=== PATIENT | male | born 1975 | race Caucasian/White ===

== ENCOUNTER 2018-03-09 22:01 | Inpatient (IN) | payer OTHER ==
[~2018-03-09] VITALS: Ht 185.4 cm; Wt 75.7 kg
[2018-03-09 22:21] VITALS: BP 166/133; BP 190/135
[2018-03-09] MEDS ORDERED: HYDROCHLOROTHIA25 M2 (22:28)
[2018-03-09] MEDS ORDERED: LISINOPRIL20 MG (22:28)
[2018-03-10 00:41] LABS: ABSOLUTE BASOPHILS 0.1 thou/uL (0.0-0.2); ABSOLUTE EOSINOPHILS 0.1 thou/uL (0.0-0.7); ABSOLUTE LYMPHOCYTES 3.5 thou/uL (0.8-5.3); ABSOLUTE MONOCYTES 0.5 thou/uL (0.0-1.2); ABSOLUTE NEUTROPHILS 6.1 thou/uL (1.6-8.1); BASOPHILS 1.1 %; HEMATOCRIT 45.6 % (42.0-52.0); HEMOGLOBIN 15.3 gm/dL (14.0-18.0); LYMPHOCYTES 34.2 %; MCH 30.3 pg (26.0-34.0); MCHC 33.5 g/dL (28.0-37.0); MCV 90.3 fL (80.0-100.0); MONOCYTES 4.6 %; MPV 9.6 fl. (7.2-11.1); NUCLEATED RBCS 0 /100WBC; PLATELET COUNT* 261 thou/uL (150-400); POLYS 59.1 %; RBC 5.05 mil/uL (4.50-6.00); RDW-CV 14.8 % (10.5-14.5); WBC 10.3 thou/uL (4.0-11.0)
[2018-03-10 00:49] LABS: CALCIUM 8.5 mg/dL (8.5-10.1); CREATININE 1.5 mg/dL (0.6-1.3)
[2018-03-10 00:54] LABS: ALBUMIN 2.9 g/dL (3.4-5.0); POTASSIUM 4.1 mmol/L (3.5-5.1); TOTAL BILIRUBIN 0.7 mg/dL (<0.1-1.0); TOTAL PROTEIN 6.9 g/dL (6.4-8.2)
[2018-03-10 03:00] VITALS: BP 148/103
[2018-03-10 03:09] VITALS: BP 159/129
--- NOTE | 2018-03-10 04:45 | NUR ---
PT ARRIVED IN ROOM AROUND 0300. ASSESSMENT COMPLETED CHARTED. NO C/O PAIN, HAS SOA AND COUGH, UP WITH STANDBY, A & O X 4, PT RESTING IN BED AT THIS TIME. IV IN RFA SL, HBP LOWERING, NO C/O DIZZINESS, HEADACHE, OR NAUSEA. PT STARTED GETTING NAUSEA WHILE GETTING AZITHROMYCIN. WILL CONTINUE WITH PLAN OF CARE.
[2018-03-10 05:06] LABS: INR 1.3; PROTIME 12.7 Seconds (9.20-11.50)
[2018-03-10 07:45] VITALS: BP 147/112
--- NOTE | 2018-03-10 08:37 | NUR ---
RECIEVED REPORT FROM ARY AND ASSUMED CARE OF PT @ 1085.PT IS A/O X4 BUT VERY SLEEPY.BP HIGH @ 147/112.TRACING SR ON MONITOR.LUNG SOUNDS ARE COARSE DIMINSHED ON 2L O2 NC.PT IS HAVING TACHYPNEA WITH PAUSES IN BREATHING WHILE SLEEPING. LAST BM WAS YESTERDAY.IV ROGHT FOREARM PATENT AND SALINE LOCKED.PT IS CALM AND COOPERATIVE WITH NO C/O PAIN AT TIME OF ASSESSMENT. PT IS UP WITH ONE ASSIST TO BATHROOM.PT LEFT RESTING IN BED WITH CALL LIGHT AND FALL PRECAUTIONS IN PLACE.WILL CONTINUE TO MONITOR.
--- NOTE | 2018-03-10 11:37 | EKG ---
[place] [address] ELECTROCARDIOGRAM REPORT Name: DAVON TESFAYE Room: [place] [address] ADM IN .R.#: [id number] Admission: 03/10/18 Attend Phys: Shanta Nettles Discharge: Date of : 77 Report #: [id number] THIS REPORT FOR: //name// [facility] ED Test Date: 2018-03-09 Test Time: 22:32:47 Pat Name: DAVON TESFAYE Department: Room: [place] [address] Gender: M Rehab Physician: MANUEL : 1975 Requested By: Wendie Pyle Order Number: [id number] Laura MD: Gabino Huddleston Measurements Intervals [place] Rate: 112 P: 75 TX: 136 QRS: 47 QRSD: 96 T: 72 QT: 375 QTc: 512 Interpretive Statements Sinus tachycardia Left atrial enlargement Left ventricular hypertrophy Borderline T abnormalities, lateral leads Prolonged QT interval No previous ECG available for comparison Electronically Signed On 03-10-2018 11:37:01 CDT by Gabino Huddleston [email or web address] <ELECTRONICALLY SIGNED> By: Gabino Huddleston MD, [facility] 03/10/18 1137 31 31 Gabino Huddleston MD, FAC /EPI
[2018-03-10 11:47] VITALS: BP 139/111
[2018-03-10 14:09] LABS: HEPATITIS B SURFACE AG Negative (Negative)
[2018-03-10 15:54] VITALS: BP 141/113
[2018-03-10 16:11] LABS: CHOLESTEROL 140 mg/dL (<200); HDL CHOLESTEROL 31 mg/dL (>40); LDL CHOLESTEROL 96 mg/dL (<100); TC:HDL 4.5 Ratio (Not establshd); TRIGLYCERIDE 69 mg/dL (<150); VLDL 14 mg/dL (<40)
[2018-03-10 16:12] LABS: SERUM ASSESSMENT Clear
--- NOTE | 2018-03-10 17:06 | 2DMMODE ---
[place] [address] 2 D/M-MODE ECHOCARDIOGRAM Name: DAVON TESFAYE Room: [place] [address] ADM IN [facility]#: [id number] Admission: 03/10/18 Attend Phys: Mayank Eid Discharge: Date of : 77 Date of Service: 03/10/18 1705 Report #: [id number] THIS REPORT FOR: //name// APPROVED REPORT Study performed: 03/10/2018 14:04:43 EXAM: Comprehensive 2D, Doppler, and color-flow Echocardiogram Patient Location: In-Patient Room #: [facility] Status: routine BSA: 1.99 HR: 100 bpm BP: 147/112 mmHg Rhythm: NSR Other Information Study Quality: Good Indications Hypertension/HDD Pleural Effusion Pneumonia 2D Dimensions LVEF(%): 19.36 (>50%) IVSd: 12.21 (7-11mm) LVOT Diam: 21.12 (18-24mm) LVDd: 55.44 mm PWd: 12.43 (7-11mm) Ascending Ao: 32.06 (22-36mm) LVDs: 50.51 (25-40mm) Aortic Root: 35.36 mm Licea's LVEF: 19.36 % Volumes Left Atrial Volume (Systole) LA ESV Index: 52.00 mL/m2 Aortic Valve AoV Peak Ok.: 0.53 m/s AO Peak Gr.: 1.12 mmHg LVOT Max P.71 mmHg AO Mean Gr.: 0.79 mmHg LVOT Mean P.33 mmHg LVOT Max V: 0.42 m/s AO V2 VTI: 5.64 cm LVOT Mean V: 0.26 m/s BEHZAD (VTI): 3.00 cm2 LVOT V1 VTI: 4.83 [place] [address] 2 D/M-MODE ECHOCARDIOGRAM Name: DAVON TESFAYE Room: [address] IN [facility]#: [id number] Admission: 03/10/18 Attend Phys: Mayank Eid Discharge: Date of : 77 Date of Service: 03/10/18 1705 Report #: [id number] Mitral Valve E/A Ratio: 1.62 MV Decel. Time: 105.67 ms MV E Max Ok.: 1.19 m/s MV PHT: 30.64 ms MVA (PHT): 7.18 cm2 TDI E/Lateral E': 13.22 E/Medial E': 23.80 Medial E' Ok.: 0.05 m/s Lateral E' Ok.: 0.09 m/s Pulmonary Valve PV Peak Ok.: 0.56 m/s PV Peak Gr.: 1.24 mmHg Tricuspid Valve TR Peak Gr.: 23.27 mmHg RVSP: 28.00 mmHg Left Ventricle Left ventricle is mildly dilated. There is global hypokinesis of the left ventricle. Mild concentric left ventricular hypertrophy. Left ventricular systolic function is severely decreased. LVEF is 15-20%. The left ventricular diastolic function is normal. Right Ventricle The right ventricle is normal size. The right ventricular systolic function is normal. Atria Left atrium is severely dilated. The right atrium size is normal. Aortic Valve The aortic valve is normal in structure. No aortic regurgitation is present. There is no aortic valvular stenosis. Mitral Valve The mitral valve is normal in structure. Moderate mitral regurgitation. No evidence of mitral valve stenosis. Tricuspid Valve The tricuspid valve is normal in structure. Mild tricuspid regurgitation. The RVSP is 34_ mmHg. Pulmonic Valve The pulmonary valve is normal in [place] [address] 2 D/M-MODE ECHOCARDIOGRAM Name: DAVON TESFAYE Room: [address] IN [facility]#: [id number] Admission: 03/10/18 Attend Phys: Mayank Eid Discharge: Date of : 77 Date of Service: 03/10/18 1705 Report #: [id number] regurgitation. Great Vessels The aortic root is normal in size. IVC is normal in size and collapses with >50% inspiration Pericardium There is no pericardial effusion. Left pleural effusion. <Conclusion> Mild concentric left ventricular hypertrophy. LVEF is 15-20%. Left atrium is severely dilated. Moderate mitral regurgitation. <ELECTRONICALLY SIGNED> By: Gabino Huddleston MD, [facility] 03/10/181704 04 04 Gabino Huddleston MD, FACC /INF
--- NOTE | 2018-03-10 17:57 | NUR ---
BP HAS REMAINED ELEVATED THROUGHOUT SHIFT.MEDICATIONS GIVEN.CARDIAC MONTIORING IN PLACE WITH NO CHANGES THIS SHIFT.PT REMAINS ON 2L O2 NC.PT HAS DENIED PAIN.IV PATENT AND SALINE LOCKED.PT HAS BEEN ANXIOUS WITH XANAX GIVEN.NICOTINE PATCH ORDERED.STILL NEED TO COLLECT URINE SAMPLE.PT INFORMED OF PLAN OF CARE AND COMMUNICATES UNDERSTANDING.CALL LIGHT WITHIN REACH.WILL CONTINUE TO MONITOR FOR DURATION OF SHIFT.
[2018-03-10 22:00] VITALS: BP 141/106
[2018-03-11 00:18] VITALS: BP 160/123
[2018-03-11 02:12] LABS: GLYCOHEMOGLOBIN (HGB A1C) 5.9 % (4.8-5.6)
[2018-03-11 04:00] VITALS: BP 151/105
--- NOTE | 2018-03-11 06:19 | NUR ---
UA SAMPLE SENT TO LAB. MAINTAIN GOOD OXYGENATION DURING NIGHT. PT IS NOW AWAKE
--- NOTE | 2018-03-11 06:21 | NUR ---
ASSUMED PT CARE YESTERDAY AT 19:15 RPEOT RECEIVED FORM DAY SHIFT NURSE. PT IS ALERT AWAKE ORIENTED X 4. SITTING IN BED , TACHYPNEIC, WIHTOUT OXYGEN ON. OXYGEN APPLIED 2 L ON NC. VITAL SIGNS CHECKED. RESULT WITHIN NORMAL LIMIT. O2 SATURATION 94 ON 2 L NC. PT IS ANXIOU..XANAX ADMINISTERED ALONG WITH OTHER SCHEDULED MEDICATIONS. SINUS TACHY ON TAVON HEART MONITOR. PT FAMILY MEMEBERS ARE A BEDSIDE. NO COMPLAIN OF PAIN. IV LINE PATENT. PT SLEPT DURING WHOLE NIGHT.
[2018-03-11 06:49] LABS: URINE BILIRUBIN NEGATIVE (Negative); URINE BLOOD 1+ (Negative); URINE CLARITY CLEAR; URINE COLOR YELLOW; URINE GLUCOSE-RANDOM NEGATIVE (Negative); URINE KETONES NEGATIVE (Negative); URINE LEUKOCYTES-REFLEX NEGATIVE (Negative); URINE NITRITE-REFLEX NEGATIVE (Negative); URINE PROTEIN 2+ (Negative); URINE SPECIFIC GRAVITY >= 1.030 (1.005-1.030); URINE UROBILINOGEN 0.2 E.U./dl (0.2-1.0)
[2018-03-11 06:58] LABS: BACTERIA-REFLEX 1-9 Few /HPF (None Seen); CASTS None Seen /LPF (None Seen); CRYSTALS None Seen /LPF (None Seen); MUCUS None Seen strn/LPF (None Seen); SQUAMOUS 0-3 Few /LPF (0-3); URINE WBC-REFLEX 0-5 Rare /HPF (0-5)
[2018-03-11 07:19] LABS: AMP/METHAMP POSITIVE (Negative); BARBITURATES Negative (Negative); BENZODIAZEPINES POSITIVE (Negative); COCAINE Negative (Negative); METHADONE Negative (Negative); OPIATES POSITIVE (Negative); PCP Negative (Negative); THC Negative (Negative)
[2018-03-11 09:00] VITALS: BP 167/128
[2018-03-11 11:30] VITALS: BP 154/110
--- NOTE | 2018-03-11 13:22 | NUR ---
MET WITH PT TO DISCUSS HOME SITUATION/DC PLANNING. PT IS CURRENTLY LIVING WITH HIS BROTHER/BARBARA HERE IN THIS ARE[place]. HIS MAILING ADDRESS AND WHERE HE LIVED PREVIOUSLY IS IN AGENCY WITH HIS FATHER/NORM. PT IS NORMALLY INDEPENDENT AND TRIES TO WORK, HASN'T BEEN WORKING RECENTLY BUT MOVED TO THIS AREA BECAUSE THERE IS 'MORE WORK IN THIS AREA.' PT USES NO EQUIPMENT. STATES HE HASN'T HAD INSURANCE FOR ABOUT A YEAR AND STOPPED ALL HIS MEDS, DID TAKE HTN MEDS. STATES HE HAD A HOSPITAL STAY 'AWHILE' AGO AND WAS GIVEN MEDS FOR ONE MONTH FOR HIS BP, BUT NEVER FOLLOWED UP FOR ANYONE AND JUST STOPPED THEM. STRESSED TO PT IMPORTANCE OF F/U AFTER THIS STAY AND POSSIBLE NEED FOR ANTICOAGULANTS WITH IS PE. ALSO IF THERE IS SOMEONE THAT CAN ASSIST WTIH PAYING FOR MEDS FOR HIM, HE STATED HE'D ASK FAMILY. PT MAINTAINED POOR EYE CONTACT, APPEARS TO HAVE LIMITED INSIGHT INTO HIS HEALTH ISSUES AND NEED FOR HEALTHCARE. DID VERBALIZE THAT HE HAS 'FLUID AND A BLOOD CLOT IN MY LUNG.' PT STATED HE THOUGHT HE MAY STAY IN THIS AREA WITH HIS BROTHER. GAVE HIM COMMUNITY RESOURCES FOR THIS AREA [facility] ALICE IN AGENCY AND ENCOURAGED HIM TO F/U WITH ONE OF THEM. UNSURE OF ANTICOAG FOR DC, WILL DISCUSS WITH CONCERN FOR COMPLIANCE.
[2018-03-11 15:30] VITALS: BP 144/102
[2018-03-11 20:00] VITALS: BP 144/103
[2018-03-12] VITALS: BP 138/95
[2018-03-12 04:00] VITALS: BP 128/93
[2018-03-12 05:10] LABS: INR 1.3; PROTIME 12.7 Seconds (9.20-11.50)
[2018-03-12 05:11] LABS: CALCIUM 7.4 mg/dL (8.5-10.1); CREATININE 1.4 mg/dL (0.6-1.3); POTASSIUM 3.3 mmol/L (3.5-5.1)
--- NOTE | 2018-03-12 05:30 | NUR ---
ASSUMED PT CARE AT 19;15 REPORT RECEIVED FORM NURSE.PT IS ALERT AWAKE ORIENTED X4. ON 2 L NC SATURATION IS 99. FAMILY MEMBERS IN ROOM .VITAL SIGNS TAKEN. WITHIN NORMAL LIMIT. PT SAYS HE FEELS ANXIOUS. XANAX ADMINISTERED ALONG WITH OTHER MEDICATIONS ORDERED. SINUS TACHY ON THE MONITOR. ASSESSMENT PERFORMED. DAY SHIFT NURSE MENTIONS IN REPORT THAT PT IS SUPPOSED TO HAVE SOME THORACENTESIS DONE IN THE AM AND TO HOLD LOVENOX FOR THE PROCEDURE. I DID NOT SEE ANY ORDER OR ANY DOCTOR'S NOTES STATES THAT PT WILL HAVE THIS PROCEDURE. BUT I HELD THE LOVENOX IN CASE. AND WILL PASS ON TO DAY SHIFT NURSE IN REPORT
--- NOTE | 2018-03-12 06:36 | NUR ---
LOVENOX WAS HELD FOR POSSIBLE THORACENTESIS PROCEDURE TODAY . THIS WAS COMMUNICATEED TO ME FROM CHANGE OF SHIFT REPORT.
[2018-03-12 07:54] VITALS: BP 138/95
--- NOTE | 2018-03-12 08:21 | CON ---
[address] [address] CONSULTATION Name: DAVON TESFAYE Room: [place] [address] ADM IN M.R.#: [id number] Admission: 03/10/18 Attend Phys: Shanta Nettles Discharge: Date of : 77 Report #: [id number] THIS REPORT FOR: //name// CC: Gabino Huddleston MD [facility] physician/PCP Mayank Eid DATE OF SERVICE: 03/11/2018 REQUESTING PHYSICIAN: Dr. Maldonado. REASON FOR CONSULTATION: Pulmonary embolism, pleural effusion, dyspnea. DISCUSSION: The patient is a 42-year-old man who does not have a history of any prior pulmonary disease or thromboembolic disease. He is a longtime smoker, smoking approximately a pack of cigarettes per day up until recently. He presented to the Emergency Department yesterday. Over the last 3-4 days, had been feeling progressively weaker. He was complaining of shortness of breath. Along with this, he was feeling extremely anxious. He notes the anxiety felt similar, though different to what he had had when he had gone through a divorce in the past. He is not having any actual chest pain. He has had a decreased appetite, however, due to the shortness of breath. He has some cough that has been nonproductive. He was seen in the Emergency Department. He was noted to be dyspneic, though his room air O2 saturations were adequate. He had imaging done in the ED, which showed bilateral infiltrates and pleural effusions. He was followed up with a CT scan of his chest with a PE protocol. It did show he had a small pulmonary embolism noted in right mid lung field. He had bilateral pleural effusions. He had some mild mediastinal adenopathy noted as well. Ground-glass infiltrate noted in the right upper lobe. He was started on high dose Lovenox. Because his troponins were elevated as well as his BNP, Cardiology saw him yesterday. He does have a history of hypertension and dyslipidemia. He was on antihypertensive as well as lipid lowering agents. However, after he had lost the job last year, he lost his health benefits. He had been unable to afford to take his medications. He notes he has had his blood pressure checked in the interim and at times it was extremely high and it was recommended he be evaluated in the ED at that time. Apparently, he was at one point given another prescription for an antihypertensive one that he could afford. However, after he had been (which has been now over a year), he has been up in this area. He has been working here and, as noted, does not have a physician here. In the past, he has had no history of thromboembolic disease. No history of heart or lung problems otherwise. He apparently has gone through some stress testing in the past given his family [place] [address] CONSULTATION Name: DAVON TESFAYE Room: [address] IN [facility]#: [id number] Admission: 03/10/18 Attend Phys: Shanta Nettles Discharge: Date of : 77 Report #: [id number] were unremarkable. PAST MEDICAL HISTORY: Remarkable for the hypertension, dyslipidemia as noted. He did have significant anxiety issues when he was going through a divorce. Apparently, it was an extremely bitter divorce with a lot of associated complications. Has required surgery on his right ankle in the past. MEDICATIONS: He was on in the past were hydrochlorothiazide, lisinopril and Xanax, but not on anything at this time. SOCIAL HISTORY: He is . He does have children. Pack a day smoker up until recently. He notes he was a heavy drinker until a year ago and then he stopped. Denies any other drug use. Tried marijuana once many years ago. 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 More recently had been working on remodeling projects. 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 REVIEW OF SYSTEMS: Please note positives above. Up until recently, he was physically very active with his work, involved a lot of movement, lifting, long hours, etc. He had no trouble keeping up with that. Weight has been stable recently. He did lose some weight last summer when he had done a job switch and he was having to physically work a lot harder. He has not had any syncopal episodes. He does deny chest pain. No swelling in his lower extremities. Denies any nausea or vomiting. Appetite has decreased here in the last several days, but he notes it is primarily because he is short of breath when he eats. He has had no extended travel. No periods of loss of consciousness. FAMILY HISTORY: Positive for heart disease. He is not aware of any thromboembolic disease. His mother had COPD, was a heavy smoker. PHYSICAL EXAMINATION: GENERAL APPEARANCE: A male, looks stated age. He is alert, cooperative. He is resting in bed, his O2 running via nasal cannula. Respirations are mildly elevated. He is able to speak in full sentences. He has no marked distress. HEENT: Head is normocephalic. Sclerae nonicteric. Mucous membranes are moist. Dentition is fair. NECK: Negative for adenopathy. Neck veins do look a little dilated. HEART: Regular, is mildly tachycardic. No S3 is appreciated. Grade 1/6 soft systolic murmur. LUNGS: Reveal breath sounds to be diminished in the bases bilaterally, right greater than left. There is dullness to percussion and decreased tactile fremitus. No E-to-A changes. No crackles or wheezing are heard. ABDOMEN: Soft, without appreciable hepatosplenomegaly. There is no guarding or rebound tenderness noted. EXTREMITIES: Lower extremities are negative for edema. No calf tenderness. SKIN: [place] [address] CONSULTATION Name: MERADAVON Room: [address] IN [facility]#: [id number] Admission: 03/10/18 Attend Phys: Shanta Nettles Discharge: Date of : 77 Report #: [id number] NEUROLOGIC: He is alert and oriented x 3. LABORATORY AND X-RAY FINDINGS: CT was reviewed, note comments above. Echocardiogram done yesterday reveals a severe decrease in his EF to 15-20%. He had global hypokinesis. He had mild LVH. RV is normal. Left atrium severely dilated. He did have moderate mitral regurgitation. No pericardial effusion. On his chemistry on admission, his BUN was 24, creatinine of 1.5, potassium 4.1, albumin 2.9, ALT 114, alkaline phosphatase 131, AST 81. ProBNP 12,240. Troponins had bumped up to 0.14, down to . TSH 3.97. Hemoglobin A1c 5.9. Hepatitis B core antigen is positive. Drug screen was positive for amphetamine/methamphetamines, benzodiazepines and opiates. White blood cell count 10,300, hemoglobin 15.3, hematocrit of 45.6, platelets 261,000. Blood cultures were sent. IMPRESSION: 1. A small right pulmonary embolism. 2. Severe decrease in left ventricular systolic function. Ejection fraction 15-20%. Associated moderate mitral regurgitation. 3. Bilateral pleural effusions, most likely related to decreased left ventricular function. 4. Mild elevation of liver function tests. Could be related to hepatitis versus passive congestion of his liver. 5. Tobacco abuse. 6. Hypertension, he has not been compliant with his regimen. Remains markedly hypertensive here in the hospital. 7. Mild renal insufficiency. RECOMMENDATIONS: 1. Given the size of the pleural effusions noted on his CT scan, we will ask Radiology to tap at least one side. This may help alleviate some of his dyspnea. Await additional Cardiology followup. I have given him Lasix 40 mg IV x 1 at this time. 2. The patient denied drug use to me. He was quite emphatic about that. I do note positive drug screen, but this was not confirmed with a confirmatory study. 3. I will also add some nebulizer treatments, though he was not actively bronchospastic on exam. 4. Depending on additional cardiac evaluation and findings, given the PE, anticipate he will need a minimum of 3 and perhaps 6 months' worth of anticoagulation therapy. 5. We will also assess lower extremity venous Dopplers. <ELECTRONICALLY SIGNED> By: Shelby Price MD 03/12/18 0821 1040 [id number] Price MD /nt
--- NOTE | 2018-03-12 08:41 | NUR ---
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
[2018-03-12 10:33] LABS: CLARITY HAZY; COLOR AMBER; SOURCE ASCITES; TOTAL VOLUME 1160 ml
[2018-03-12 11:21] LABS: BF LYMPHOCYTES 21 %; BF POLYS 79 %; BF TISSUE 22 /100 WBC
[2018-03-12 11:22] LABS: BF RBC 5356 /mm3
[2018-03-12 11:27] VITALS: BP 127/95
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
[2018-03-12 14:10] LABS: HEPATITIS B SURFACE AG Negative (Negative)
--- NOTE | 2018-03-12 14:39 | NUR ---
PT CURRENLTY RESTING IN BED- CLERICAL OFFICE IN PLACE ORDERED, TRACING SR- IV TO RIGHT FA INTACT AND SL, FLUSHING WELL- PT DOWN FOR THORACENTESIS SCHEDULED WITH 1000CC OF FLUID REPORTED TO HAVE BEEN PULLED OFF FROM RIGHT SIDE- PT TOLERATED PROCEURE WELL- GOOD PO INTAKE NOTED WITH LUNCH THIS SHIFT- FAMILY IN VISITING, CM ON CASE MAKING ARRANGEMENTS AND PLANS FOR D/C- K+ REPLACED THIS SHIFT PER PROTOCOL WITH REDRAW SCHEDULED FOR 1640- SCHEDULED 20 MEQ BID ORDERED THIS SHIFT PER - PT DENIES ANY C/O PAIN/DISCOMFORT AT THIS TIME- CALL LIGHT AND PERSONAL BELONGINGS WITH IN REACH- ALL NEEDS MET AT THIS TIME-WCTM
[2018-03-12 15:35] VITALS: BP 138/103
--- NOTE | 2018-03-12 17:42 | CON ---
[address] [address] CONSULTATION Name: DAVON TESFAYE Room: [place] [address] ADM IN .R.#: [id number] Admission: 03/10/18 Attend Phys: Shanta Nettles Discharge: Date of : 77 Report #: [id number] THIS REPORT FOR: //name// CC: [facility] physician/PCP Mayank Eid DATE OF SERVICE: 03/10/2018 HISTORY OF PRESENT ILLNESS: The patient is a 42-year-old single white male who I was asked to see in the hospital today after he complained of being short of breath. The patient has no history of heart disease. He has never been here to [place]. No old records or family members are available. According to the patient, he had a stress test years ago in [place] because heart disease runs in the family, including his father had bypass surgery. He had a second stress test in [place] couple of years ago. He has never had a heart catheterization. He does smoke a pack of cigarettes a day. Recently, he has been under a lot of stress. He quit taking his medications. He stopped taking his Xanax. He ran out of his heart medications. He finally came to the Emergency Room with a brother last night and was admitted. I was asked to see him for cardiac evaluation. He denies any chest pain. He does cough every day. He has had no edema. He notes occasional flutter in heart, but no syncope. In the Emergency Room, his blood pressure was 190/110. PAST MEDICAL HISTORY: Significant for surgery on his right ankle following an accident. He had surgery required of his right neck from a cat bite. MEDICATIONS: He previously had been on Xanax, lisinopril, hydrochlorothiazide. ALLERGIES: He has an allergy to PENICILLIN. FAMILY HISTORY: His father had coronary artery bypass surgery. 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 He has no insurance, he is on no medications. He is going through a divorce, lives with a brother here in [place]. Smokes a pack of cigarettes a day. He used to drink alcohol, but quit drinking alcohol. No longer abuses drugs. REVIEW OF SYSTEMS: He has had no history of stroke. He does have a chronic cough. No history of peptic ulcer disease, liver disease, kidney disease or cancer, no psychiatric illness. PHYSICAL EXAMINATION: GENERAL: Revealed a middle-aged male lying in bed. He appeared in no distress. VITAL SIGNS: Initially blood pressure was 190/110, blood pressure is currently 160/100. His pulse is 90, he was afebrile. HEENT: He was anicteric. Conjunctivae were pink. [place] [address] CONSULTATION Name: DAVON TESFAYE Room: [address] IN [facility]#: [id number] Admission: 03/10/18 Attend Phys: Shanta Nettles Discharge: Date of : 77 Report #: [id number] NECK: Veins are nondistended. No carotid bruits heard. CHEST: Clear to auscultation. HEART: Regular rate and rhythm. No significant murmur. ABDOMEN: Soft, nontender. EXTREMITIES: Had no edema. Posterior tibial pulse 2+ bilaterally. SKIN: Warm, dry. NEUROLOGIC: Nonfocal. LYMPH: No adenopathy. MUSCULOSKELETAL: No joint effusions. PSYCHIATRIC: Mood was somewhat depressed. LABORATORY DATA: Sodium 140, BUN 24, creatinine 1.5, glucose 116. SGOT 81, SGPT 114, alkaline phosphatase 131, bilirubin 0.7, albumin 2.9. His troponin 0.13. BNP 1240. His white blood cell count 10.3, hemoglobin 15.3. He had a chest x-ray in the Emergency Room that showed cardiomegaly, clear lung elizabeth, small effusions. CT scan of the chest was performed using a PE protocol that showed small right mid lung pulmonary embolus. Bilateral effusions, enlarged mediastinal adenopathy, atelectasis. IMPRESSION AND RECOMMENDATIONS: 1. Shortness of breath, suspect secondary to pulmonary embolus. 2. Pulmonary embolus. The patient is anticoagulated. 3. Tobacco abuse. 4. Chronic bronchitis. 5. Mediastinal adenopathy. 6. History of anxiety. Recommend no further cardiac evaluation. <ELECTRONICALLY SIGNED> By: Gabino Huddleston MD, FACC 03/12/18 1742 0858 [id number] Huddleston MD, FAC /nt
[2018-03-12 19:35] VITALS: BP 127/86
[2018-03-13 00:49] VITALS: BP 128/84
--- NOTE | 2018-03-13 02:34 | NUR ---
ASSUMED CARE OF PT AT 1900. VSS. BOYD. NO COMPLAINTS OF PAIN. PTS REPORTS THAT BREATHING IS EASIER SINCE HIS THORACENTESIS. PTS LEFT LUNG IS DIMINISHED AND RIGHT LUNG IS CLEAR. PT IS IN SINUS RYTHM ON THE TELEMETRY. PT IS RESTING COMFORTABLY IN BED. RESPIRATIONS ARE EVEN AND NONLABORED. WILL CONTINUE TO MONITOR PT.
[2018-03-13 04:32] VITALS: BP 121/85
[2018-03-13 05:05] LABS: HEMATOCRIT 42.6 % (42.0-52.0); HEMOGLOBIN 14.1 gm/dL (14.0-18.0); MCH 29.8 pg (26.0-34.0); MCHC 33.1 g/dL (28.0-37.0); MCV 89.9 fL (80.0-100.0); MPV 8.5 fl. (7.2-11.1); RBC 4.75 mil/uL (4.50-6.00); RDW-CV 15.1 % (10.5-14.5); WBC 6.7 thou/uL (4.0-11.0)
[2018-03-13 05:13] LABS: INR 1.3; PROTIME 12.6 Seconds (9.20-11.50)
[2018-03-13 05:31] LABS: ALBUMIN 2.1 g/dL (3.4-5.0); CALCIUM 7.8 mg/dL (8.5-10.1); CREATININE 1.2 mg/dL (0.6-1.3); MAGNESIUM 1.7 mg/dL (1.8-2.4); POTASSIUM 4.2 mmol/L (3.5-5.1); TOTAL BILIRUBIN 0.5 mg/dL (<0.1-1.0); TOTAL PROTEIN 5.6 g/dL (6.4-8.2)
[2018-03-13 08:00] VITALS: BP 131/91
[2018-03-13 11:39] VITALS: BP 125/90
--- NOTE | 2018-03-13 14:21 | NUR ---
ASSUMED CARE OF PATIENT THIS AM AT 0730. PATIENT IS ALERT AND ORIENTED X 4. HE DENIES PAIN THIS AM. PATIENT HAS BEEN DOZING OFF AND ON THROUGHOUT THE DAY. TELE SHOWS SR WITH A 1D AVB. O2 SATS 95% ON ROOM AIR. PATIENT IS PROGRESSING TOWARDS GOALS WILL CONTINUE PLAN OF CARE.
[2018-03-13 16:11] VITALS: BP 123/83
[2018-03-13 20:40] VITALS: BP 129/87
--- NOTE | 2018-03-13 23:39 | NUR ---
RECIEVED REPORT AND ASSUMED CARE OF PATIENT AT [address]. ROAD MARKER IN PLACE TRACING ST. ASSESSMENT AND VITALS COMPLETED CHARTED, VSS. PATIENT A&OX4. PATIENT DENIES PAIN AND DISCOMFORT. ON ROOM AIR WITH O2 SATS 98%. DENIES SHORTNESS OF AIR. GOAL IS TO REMAIN ON ROOM AIR WITH SATS >92% AND REST COMFORTABLY. CALL LIGHT WITHIN REACH
[2018-03-14] VITALS: BP 145/94
[2018-03-14 04:00] VITALS: BP 128/94
--- NOTE | 2018-03-14 04:47 | NUR ---
PATIENT PROGRESSING TOWARDS GOALS: NO RESPIRATORY DISTRESS NOTED THIS SHIFT. PATIENT REMAINS ON ROOM AIR WITH O2 SATS >92%. VSS. HOURLY ROUNDING OBSERVED. CALL LIGHT WITHIN REACH
[2018-03-14 05:20] LABS: HEMATOCRIT 45.9 % (42.0-52.0); HEMOGLOBIN 15.2 gm/dL (14.0-18.0); MCH 29.9 pg (26.0-34.0); MCHC 33.1 g/dL (28.0-37.0); MCV 90.1 fL (80.0-100.0); MPV 8.9 fl. (7.2-11.1); RBC 5.09 mil/uL (4.50-6.00); RDW-CV 15.1 % (10.5-14.5); WBC 6.8 thou/uL (4.0-11.0)
[2018-03-14 05:27] LABS: INR 2.1
[2018-03-14 05:35] LABS: CALCIUM 8.3 mg/dL (8.5-10.1); CREATININE 1.2 mg/dL (0.6-1.3); MAGNESIUM 2.1 mg/dL (1.8-2.4); POTASSIUM 4.7 mmol/L (3.5-5.1)
[2018-03-14 05:41] LABS: BODY FLUID LDH 182 IU/L (()); BODY FLUID PROTEIN 1.8 g/dL (())
[2018-03-14 08:00] VITALS: BP 128/94
[2018-03-14 11:08] VITALS: BP 136/85
--- NOTE | 2018-03-14 11:27 | NUR ---
ASSUMED CARE OF PATIENT THIS AM AT 0730. PATIENT IS ALERT AND ORIENTED X 4. HE DENIES PAIN AND DISCOMFORT. PATIENT HAS BEEN UP IN THE ROOM INDEPENDENTLY. TELE SHOWS SR. INR 2.1 THIS AM. PATIENT HOPES FOR DISCHARGE THIS AFTERNOON. HYGIENE NEEDS ADDRESSED.
[2018-03-14 16:18] VITALS: BP 113/81
[2018-03-14 20:06] VITALS: BP 130/88
[2018-03-15 00:14] VITALS: BP 121/78
[2018-03-15 04:00] VITALS: BP 120/80
[2018-03-15 06:00] LABS: HEMATOCRIT 46.3 % (42.0-52.0); HEMOGLOBIN 15.4 gm/dL (14.0-18.0); MCH 30.4 pg (26.0-34.0); MCHC 33.4 g/dL (28.0-37.0); MCV 91.1 fL (80.0-100.0); MPV 8.5 fl. (7.2-11.1); RBC 5.08 mil/uL (4.50-6.00); RDW-CV 15.7 % (10.5-14.5); WBC 6.3 thou/uL (4.0-11.0)
[2018-03-15 06:10] LABS: INR 2.6; PROTIME 24.8 Seconds (9.20-11.50)
[2018-03-15 06:11] LABS: CALCIUM 8.6 mg/dL (8.5-10.1); CREATININE 1.2 mg/dL (0.6-1.3); POTASSIUM 4.6 mmol/L (3.5-5.1)
--- NOTE | 2018-03-15 06:44 | NUR ---
Pt reports he rested well overnight. States he is planning on being discharged today. No IV, VSS. Will continue to monitor.
[2018-03-15 08:00] VITALS: BP 131/95
--- NOTE | 2018-03-15 11:10 | NUR ---
CONTINUE TO FOLLOW, WAS ABLE TO MAKE APPT AT [facility] FOR PT. MET WITH HIM TO DISCUSS AND STRESS IMPORTANCE OF KEEPING APPTS AND GETTING HIS LAB CHECKED WEEKLY PER DR THOMPSON'S INSTRUCTION. GAVE INSTRUCTION ON WHAT TO TAKE TO APPT AT [facility] AND WROTE IT IN HIS DC INSTRUCTION ALSO. PT HAS SCRIPT FOR 4 MEDS, CHECKED AND THEY ARE ON THE $4/LIST, PT MADE AWARE. PT'S SISTER LAZARO TRIPATHI CALLED AND ASKED THAT PT HAD SCRIPT FOR HIS LABS THEY PLAN TO TAKE HIM TO '[facility]' TO GET DONE. SCRIPT IS ON CHART. ATTEMPTED TO CALL PT'S RAPHAEL/TORSTEN WHO CM HAD SPOKEN WITH LAST WEEK, HAD TO LEAVE MESSAGE. UPDATE TO OSKAR MEJIA
[2018-03-15 11:33] VITALS: BP 113/82
[2018-03-15 15:27] VITALS: BP 110/76
[2018-03-15] MEDS ORDERED: ALDACTONE25 MG PO (15:30)
[2018-03-15] MEDS ORDERED: PRINIVIL20 MG PO (15:32)
[2018-03-15] MEDS ORDERED: CARVEDILOL3.125 MG PO (15:32)
[2018-03-15] MEDS ORDERED: COUMADIN 2 MG TA2 M1 PO (15:33)
--- NOTE | 2018-03-15 16:41 | NUR ---
VSS, ASSUMED CARE IN THE AM, ASSESSMENT PERFORMED AND CHARTED, FALL PRECAUTIONS IN PLACE AND CALL LIGHT IN REACH, PT IS UP AD SONJA AND PN RA TRACING SR ON THE MONITOR, DENIES ANY PAIN AND HAS BEEN UP WALKING THE UNIT AT TIMES, PT GOAL IS TO D/C TO HOME AND IMPROVE UNDERSTANDING OF INFORMATION AT THIS TIME I RECIEVED D/C INSTRUCTIONS AND FILLED OUT MEDICATIONS, PROVITED SCRIPS AND INFO SHEETS ON NEW MEDICATION SHEETS, PT IV AND TELE MONITOR HAVE BEEN TAKEN OFF, PT DENIES ANY QUESTIONS OR CONCERNS AT THIS TIME, PT WAS WALKED OUT BY STAFF TO CAR WITH STAFF, HOURLY ROUNDS COMPLETED,
[2018-03-16 15:18] LABS: SOURCE PLEURAL
--- NOTE | 2018-03-22 08:22 | CON ---
[address] [address] CONSULTATION Name: DAVON TESFAYE Room: [address] IN M.R.#: [id number] Admission: 03/10/18 Attend Phys: Shanta Nettles Discharge: 03/15/18 Date of : 77 Report #: [id number] THIS REPORT FOR: //name// CC: LENARD physician/PCP Mayank Eid DATE OF SERVICE: 03/12/2018 ADDENDUM DATE OF CONSULTATION: 03/11/2018 Confirmation number is #[id number]. I personally seen and examined the patient and reviewed labs and imaging. The patient with elevated liver enzymes, who has normal abdominal ultrasound and bilirubin. ALT is more than AST, and alkaline phosphatase is mildly elevated. The patient had viral hepatitis serology, which is back as hepatitis B core antibody. Hepatitis surface antigen is pending. Also, the abdominal ultrasound appears normal. He has had recent non-STEMI and pulmonary embolism in the right side of his lung. We will order complete set up for viral hepatitis serology and continue monitoring labs. I will make further recommendation once these values are available. <ELECTRONICALLY SIGNED> By: Timmy Pat MD 03/22/18 0822 [id number] Pat MD /nt
--- NOTE | 2018-03-22 08:22 | CON ---
[address] [address] CONSULTATION Name: DAVON TESFAYE Room: [address] IN .R.#: [id number] Admission: 03/10/18 Attend Phys: Shanta Nettles Discharge: 03/15/18 Date of : 77 Report #: [id number] THIS REPORT FOR: //name// CC: LENARD physician/PCP Mayank Eid DICTATED BY: Pat Wilburn [facility] DATE OF SERVICE: 03/11/2018 PRIMARY CARE PHYSICIAN: Please note, the patient does not have a PCP. REASON FOR CONSULTATION: Positive hepatitis B core antibody. HISTORY OF PRESENT ILLNESS: The patient was seen and physically examined by myself. This is a 42-year-old male who presented to the Emergency Room with chief complaint of anxiety, which has been going on for the last 2 weeks. He has noted that he has had a high blood pressure and shortness of breath. Apparently, he had gone to the Emergency Room at one particular time and was given some blood pressure medications and something for his anxiety but once that ran out, he stopped taking all of that. The patient lives in [place] and does not have a PCP at that time. He has a longstanding history of opioid, meth use and benzodiazepine use in the past. He tested negative for hepatitis A and hepatitis C. Note that on the time of admission because the patient was short of air, he was found to have a non-STEMI and a right lobe PE as well. PAST MEDICAL HISTORY: Hypertension and anxiety. PAST SURGICAL HISTORY: He had surgery on his right ankle. MEDICATIONS: He has taken in the past his lisinopril and hydrochlorothiazide. ALLERGIES: To PENICILLIN. FAMILY HISTORY: Negative for any GI or female cancer. SOCIAL HISTORY: The patient admits to a pack per day cigarettes, past history of alcohol use and past history of meth use as well, although he did test positive on his urine drug screen. REVIEW OF SYSTEMS: Twelve-point review of systems is essentially negative except what is mentioned in the HPI. PHYSICAL EXAMINATION: VITAL SIGNS: Temperature 36.7, pulse 100, respirations 18 and blood pressure 144/102[place] [address] CONSULTATION Name: DAVON TESFAYE Room: [address]#: [id number] Admission: 03/10/18 Attend Phys: Shanta Nettles Discharge: 03/15/18 Date of : 77 Report #: [id number] HEART: Tachycardic but regular. LUNGS: Diminished, especially on the right. ABDOMEN: Soft. Positive bowel sounds in all 4 quadrants with no masses or tenderness noted. LABORATORY DATA: Hemoglobin 15.3, hematocrit 45.6, white count is 10.3 and platelets 261. TSH was 3.9. Sodium 140, potassium 4.1, chloride 101, CO2 of 27, BUN is 24, creatinine is 1.5, GFR is 52 and glucose is 116. Total bilirubin is 0.7, alkaline phosphatase 131, ALT is 114 and AST is 81 and his BNP on admission was 12,240. RADIOLOGICAL DATA: There is also noted to have an EF of 15%-20%. He was positive, hepatitis B core antibody positive. IMPRESSION: 1. Positive hepatitis B core antibody. 2. Elevated liver function tests. 3. History of IV drug use and alcohol abuse in the past. 4. Recent dyz-JU-oiednfxov myocardial infarction. 5. Pulmonary embolism in the right lobe. PLAN: 1. We will await hepatitis B e-antibody, hepatitis B e-antigen, hepatitis B surface antibody, HIV total antibody as well as his hepatitis B viral DNA by PCR quantitative level. 2. Further recommendations will be made on an outpatient basis once these labs have been obtained. Thank you for allowing us to participate in this patient's care. Please do not hesitate to call with any questions in regard to this consult. ADDENDUM I personally seen and examined the patient and reviewed labs and imaging. The patient with elevated liver enzymes, who has normal abdominal ultrasound and bilirubin. ALT is more than AST, and alkaline phosphatase is mildly elevated. The patient had viral hepatitis serology, which is back as hepatitis B core antibody. Hepatitis surface antigen is pending. Also, the abdominal ultrasound appears normal. He has had recent non-STEMI and pulmonary embolism in the right side of his lung. We will order complete set of viral hepatitis serology and continue monitoring labs. I will make further recommendation once these values are available. <ELECTRONICALLY SIGNED> By: Timmy Pat MD 03/22/18 0822 [id number] Pat MD /nt
== END 2018-03-15 17:23 | disposition home or self-care (01) | DRG 280 ==
LOC: M.ERS 22:01 → M.2W 03-10 02:19 → M.TBA-ER 03-10 02:19 → M.2W 03-10 02:51
PROVIDERS: Emergency Medicine; Family Medicine; Internal Medicine; Internal Medicine Cardiovascular Disease; Internal Medicine Pulmonary Disease; Nurse Practitioner Adult Health; ADMIT Internal Medicine
PROC: 0W993ZZ Drainage of Right Pleural Cavity, Percutaneous Approach (ICD-10-PCS; principal; 2018-03-12)
DX: I21.4 Non-ST elevation (NSTEMI) myocardial infarction (principal); I26.99 Other pulmonary embolism without acute cor pulmonale; J96.01 Acute respiratory failure with hypoxia; I50.23 Acute on chronic systolic (congestive) heart failure; B19.10 Unspecified viral hepatitis B without hepatic coma; J90 Pleural effusion, not elsewhere classified; N17.9 Acute kidney failure, unspecified; I42.9 Cardiomyopathy, unspecified; I11.0 Hypertensive heart disease with heart failure; E87.6 Hypokalemia; F15.10 Other stimulant abuse, uncomplicated; F10.10 Alcohol abuse, uncomplicated; E83.42 Hypomagnesemia; J42 Unspecified chronic bronchitis; R59.0 Localized enlarged lymph nodes; E78.5 Hyperlipidemia, unspecified; F41.9 Anxiety disorder, unspecified; F17.210 Nicotine dependence, cigarettes, uncomplicated; Z91.14 Patient's other noncompliance with medication regimen; Z79.899 Other long term (current) drug therapy; Z88.0 Allergy status to penicillin; Z82.49 Family history of ischemic heart disease and other diseases of the circulatory system

== ENCOUNTER 2018-03-23 17:38 | Inpatient (IN) | payer OTHER ==
[~2018-03-23] VITALS: Ht 185.4 cm; Wt 72.3 kg
[~2018-03-23 17:38] MED LIST: ALDACTONE25 MG PO; CARVEDILOL3.125 MG PO; COUMADIN 2 MG TA2 M1 PO; HYDROCHLOROTHIA25 M2; LISINOPRIL20 MG; PRINIVIL20 MG PO
[2018-03-23 17:42] VITALS: BP 153/122
[2018-03-23 18:48] LABS: ABSOLUTE BASOPHILS 0.1 thou/uL (0.0-0.2); ABSOLUTE EOSINOPHILS 0.1 thou/uL (0.0-0.7); ABSOLUTE LYMPHOCYTES 3.3 thou/uL (0.8-5.3); ABSOLUTE MONOCYTES 0.7 thou/uL (0.0-1.2); BASOPHILS 0.5 %; EOSINOPHILS 0.6 %; HEMATOCRIT 38.5 % (42.0-52.0); HEMOGLOBIN 12.9 gm/dL (14.0-18.0); LYMPHOCYTES 29.9 %; MCHC 33.4 g/dL (28.0-37.0); MCV 89.6 fL (80.0-100.0); MONOCYTES 5.9 %; MPV 8.1 fl. (7.2-11.1); NUCLEATED RBCS 0 /100WBC; PLATELET COUNT* 288 thou/uL (150-400); POLYS 63.1 %; RDW-CV 15.2 % (10.5-14.5); WBC 11.1 thou/uL (4.0-11.0)
[2018-03-23 18:58] LABS: ANION GAP 9 mmol/L (7-16); APTT 28.5 Seconds (25.0-31.3); BUN 13 mg/dL (7-18); CALCIUM 7.9 mg/dL (8.5-10.1); CHLORIDE 105 mmol/L (98-107); CO2 22 mmol/L (21-32); CREATININE 1.2 mg/dL (0.6-1.3); GLUCOSE 113 mg/dL (70-99); INR 1.3; POTASSIUM 4.5 mmol/L (3.5-5.1); PROTIME 13.1 Seconds (9.20-11.50); SODIUM 136 mmol/L (136-145)
[2018-03-23 19:10] LABS: ALBUMIN 2.6 g/dL (3.4-5.0); ALKALINE PHOSPHATASE 116 U/L (46-116); LIPASE 113 U/L (73-393); NT-PRO BRAIN NAT PEPTIDE 13161 pg/mL (<300); SGOT 41 U/L (15-37); SGPT 79 U/L (30-65); TOTAL BILIRUBIN 0.8 mg/dL (<0.1-1.0); TOTAL PROTEIN 6.1 g/dL (6.4-8.2); TROPONIN-I LEVEL <0.06 ng/mL (<0.06)
[2018-03-23 19:53] LABS: URINE BILIRUBIN NEGATIVE (Negative); URINE BLOOD TRACE (Negative); URINE CLARITY CLEAR; URINE COLOR YELLOW; URINE GLUCOSE-RANDOM NEGATIVE (Negative); URINE KETONES NEGATIVE (Negative); URINE LEUKOCYTES-REFLEX NEGATIVE (Negative); URINE NITRITE-REFLEX NEGATIVE (Negative); URINE PROTEIN 3+ (Negative); URINE SPECIFIC GRAVITY >= 1.030 (1.005-1.030); URINE UROBILINOGEN 0.2 E.U./dl (0.2-1.0)
[2018-03-23 20:01] LABS: AMP/METHAMP Negative (Negative); BARBITURATES Negative (Negative); BENZODIAZEPINES Negative (Negative); COCAINE Negative (Negative); METHADONE Negative (Negative); OPIATES Negative (Negative); PCP Negative (Negative); THC Negative (Negative)
[2018-03-23 20:30] LABS: HYALINE CASTS 0-3 Few /LPF (None Seen); SQUAMOUS NONE SEEN /LPF (0-3); URINE RBC 0-2 Rare /HPF (0-2)
[2018-03-23 20:31] LABS: BACTERIA-REFLEX None Seen /HPF (None Seen); CRYSTALS None Seen /LPF (None Seen); MUCUS None Seen strn/LPF (None Seen); URINE WBC-REFLEX None Seen /HPF (0-5)
[2018-03-23] MEDS ORDERED: LASIX 20 MG TAB20 MG PO (22:35)
--- NOTE | 2018-03-23 23:14 | NUR ---
UPON OBTAINING DISCHARGE INSTRUCTIONS, NOTED B/P WAS 151/117. RECHECK WAS 149/115 ON OPPOSITE SIDE. NOTIFIED AND STATUS CHANGED FROM DISCHARGE TO ADMIT STATUS. HIS SISTER CALLED FOR INFORMATION ON HIS MEDICAL STATUS. HE DID GIVE PERMISSION FOR THIS NURSE TO CALL AND GIVE INFORMATION TO LAZARO TRIPATHI AT [phone]. CALLED AND UPDATED HER AND LET HER KNOW THAT HE DID NOT WANT TO TALK ON THE PHONE TONIGHT HE IS TO SHORT OF BREATH.
[2018-03-23 23:40] VITALS: BP 149/116
[2018-03-23 23:45] VITALS: BP 126/87
[2018-03-24 04:33] VITALS: BP 132/96
[2018-03-24 05:18] LABS: HEMATOCRIT 39.5 % (42.0-52.0); HEMOGLOBIN 13.1 gm/dL (14.0-18.0); MCH 30.2 pg (26.0-34.0); MCHC 33.2 g/dL (28.0-37.0); MCV 90.9 fL (80.0-100.0); MPV 8.5 fl. (7.2-11.1); RBC 4.35 mil/uL (4.50-6.00); RDW-CV 15.1 % (10.5-14.5); WBC 10.4 thou/uL (4.0-11.0)
[2018-03-24 05:44] LABS: ALBUMIN 2.5 g/dL (3.4-5.0); CALCIUM 8.1 mg/dL (8.5-10.1); CREATININE 1.5 mg/dL (0.6-1.3); POTASSIUM 4.9 mmol/L (3.5-5.1); TOTAL BILIRUBIN 0.7 mg/dL (<0.1-1.0)
--- NOTE | 2018-03-24 06:37 | NUR ---
Pt admitted from ED at 2345. Pt states he is still short of air, but improved from when he arrived in ED. Pt recently discharged, had PE when admitted earlier this month. Discharged on warfarin, but INR is 1.3. Pt states he's been feeling bad for about two weeks. DBP over 100 mmHg in ED, but BP stable on arrival to floor following dose of metoprolol IVP and clonidine. BP 140s/90s at 0400. Pt now on RA and denies SOA. Will continue to monitor.
[2018-03-24 08:00] VITALS: BP 130/103
--- NOTE | 2018-03-24 10:18 | EKG ---
[place] [address] ELECTROCARDIOGRAM REPORT Name: DAVON TESFYAE Room: [address] IN [facility]#: [id number] Admission: 03/23/18 Attend Phys: Shanta Nettles Discharge: Date of : 77 Report #: [id number] THIS REPORT FOR: //name// [facility] ED Test Date: 2018-03-23 Test Time: 18:50:17 Pat Name: DAVON TESFAYE Department: Room: Gender: [employer]: Hubert BOLES : 1975 Requested By: Nishi Saavedra Order Number: [id number] MD: Gabino Huddleston Measurements Intervals [place] Rate: 107 P: 65 CA: 143 QRS: 33 QRSD: 96 T: 61 QT: 380 QTc: 507 Interpretive Statements Sinus tachycardia Left atrial enlargement Left ventricular hypertrophy Prolonged QT interval Compared to ECG 03/09/2018 22:32:47 no change Electronically Signed On 03-24-2018 10:18:01 CDT by Gabino Huddleston [email or web address] <ELECTRONICALLY SIGNED> By: Gabino Huddleston MD, FAC 03/24/18 1018 1850 1850 Gabino Huddleston MD, [facility] /EPI
[2018-03-24 12:08] VITALS: BP 134/101
--- NOTE | 2018-03-24 15:36 | NUR ---
Pt was sound asleep when CM went to assess, will f/u later
[2018-03-24 16:46] VITALS: BP 136/102
--- NOTE | 2018-03-24 18:46 | NUR ---
ASSUMED CARRE OF PT AT 0730. PT CONTINUES TO BE A&O X4 CALM AND COOPERATIVE. PT HAS HAD NO C/O PAIN, BUT DID REPORT SOME ANXIETY AND A ORDER FOR XANAX 0.5MG PO BID WAS GOTTEN AND ADMINISTERED. PT REPORTS ANXIETY IS TOLERQABLE. PT HAS BEEN SLEEPING ON AND OFF THROUGH THE SHIFT TODAY. PT HAS BEEN TRACING ST ON THE MONITOR. PT HAS BEEN EATING LESS THAN 75% OF HIS MEALS TODAY. NUTRITION EDUCATION PROVIDED BY THIS NURSE. NURSING WILL CONTINUE TO MONITOR.
[2018-03-24 20:00] VITALS: BP 135/108
--- NOTE | 2018-03-24 22:18 | NUR ---
RECEIVED REPORT AND ASSUMED CARE OF PATIENT AT 1930. 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 ASSESSMENT AND VITALS COMPLETED CHARTED, BP ELEVATED. LISINOPRIL ADMINISTERED PER EMAR. PATIENT EXTREMELY ANXIOUS UPON ASSESSMENT, DIAPHORETIC AND TACHYPNIC. PATIENT PLACED ON 2L O2 NC FOR COMFORT AND C/O SHORTNESS OF AIR. PATIENT STATES HE "IS WALKING OUT OF HERE IF HE DOES NOT GET SOMETHING FOR ANXIETY." PATIENT HAD ALREADY RECEIVED XANAX 30 MINUTES PRIOR TO THIS EPISODE. PHYSICIAN NOTIFIED AND ORDERS RECEIVED FOR ONE TIME LORAZEPAM IV. ADMINISTERED WITH RELIEF, PATIENT NOW SLEEPING. GOAL IS ANXIETY MANAGEMENT AND BLOOD PRESSURE CONTROL. CALL LIGHT WITHIN REACH
[2018-03-25] VITALS: BP 141/112
[2018-03-25 04:00] VITALS: BP 146/113
[2018-03-25 05:26] LABS: INR 1.9; PROTIME 17.9 Seconds (9.20-11.50)
[2018-03-25 05:46] LABS: CALCIUM 8.2 mg/dL (8.5-10.1); CREATININE 1.3 mg/dL (0.6-1.3)
[2018-03-25 08:11] VITALS: BP 110/63
--- NOTE | 2018-03-25 08:22 | CON ---
[address] [address] CONSULTATION Name: DAVON TESFAYE Room: [address] IN M.R.#: [id number] Admission: 03/23/18 Attend Phys: Shanta Nettles Discharge: Date of : 77 Report #: [id number] THIS REPORT FOR: //name// CC: LENARD physician/PCP Mayank Eid DATE OF SERVICE: 03/24/2018 Consult has been requested by Dr. Maldonado. INDICATION FOR CONSULTATION: Shortness of breath with recent acute pulmonary embolism. HISTORY OF PRESENT ILLNESS: A 42-year-old gentleman, he was recently admitted to this hospital. During the previous hospitalization, he was found to have significant cardiomyopathy with a marked reduction in left ventricular ejection fraction. This was a new diagnosis for him. He also had some pulmonary emboli and did have mediastinal lymphadenopathy as well, mild elevation in LFTs was also noted during the last hospitalization. The patient was evaluated by the Cardiology Service. He has not undergone a cardiac catheterization; however, from Cardiology note, it appears that their impression is that his cardiomyopathy is nonischemic. The patient was anticoagulated and was discharged home on Coumadin. The patient presented to the Emergency Room again last evening, presentation was with increasing shortness of breath. He also reports having had hemoptysis at least 1 or 2 episodes which has now subsided, but he reports that he continues to cough up some yellow sputum. His INR was subtherapeutic at 1.3 on presentation. He did have a CT chest performed again which is as discussed below. Pulmonary emboli are no longer seen on the new CT. He only has mild swelling of lower extremities at this time. REVIEW OF SYSTEMS: The patient answers to the negative for 12 questions for review of systems, except as mentioned above. PAST MEDICAL HISTORY: Recent diagnosis of cardiomyopathy revealed on the recent echo which was a left ventricular ejection fraction reduced to only 15%-20%. There is also moderate mitral regurgitation on the last echo with right ventricular pressure of 34. Recent acute pulmonary emboli, recently diagnosed mediastinal lymphadenopathy, mildly elevated liver function tests. SOCIAL HISTORY: The patient is an active smoker, has been smoking for several decades, more than a pack a day, who also had a history of heavy alcohol intake. He is reported to have discontinued about a year ago. He does state that he takes some alcohol now as well. I am unable to quantify how much he is having now. The patient is reported to have denied any illegal drug [place] [address] CONSULTATION Name: DAVON TESFAYE Room: [address]#: [id number] Admission: 03/23/18 Attend Phys: Shanta Nettles Discharge: Date of : 77 Report #: [id number] was positive for methamphetamine, opiates as well as benzodiazepines during the last hospitalization, but he is negative for all of the above during this hospitalization. At some point, he was prescribed a benzodiazepine. [facility] HOME MEDICATIONS: List also in [facility] reviewed. FAMILY HISTORY: Heart disease. PHYSICAL EXAMINATION: GENERAL: He is alert, awake and oriented, does not appear to be in any distress at this time. He is on room air. VITAL SIGNS: In the records and these are reviewed. He is afebrile. He had a low grade elevation in temperature to 37.3 yesterday. HEENT: Head is normocephalic and atraumatic. Pupils are equal and reactive. There is no throat erythema. NECK: Does not show raised JVP, asymmetry, mass or lymph nodes. CHEST: Symmetrical expansion on inspection and palpation. On auscultation, breath sounds are reduced at bilateral lung bases. Rest of the chest is clear. HEART: Regular. There is a soft systolic murmur. ABDOMEN: Soft and nontender. EXTREMITIES: Lower extremities show trace to 1+ edema on the right side. There is no edema on the left. There is no calf tenderness. LABORATORY DATA: The patient's lab work is in [facility] and this is also reviewed. ASSESSMENT AND PLAN: 1. Shortness of breath. The patient, as noted above, has recently been diagnosed with cardiomyopathy. His CT chest does show changes consistent with fluid overload. In addition, there is radiopaque density/ground glass infiltrates at bilateral lung bases, which is significantly more than what I would expect from atelectasis secondary to pleural effusions. This is consistent with pneumonia. 2. Pulmonary infiltrates/pneumonia as discussed above. He does have a fairly significant pleural effusions; however, my impression is that the radiopaque densities noted at bilateral lung bases are significantly more than would be expected due to passive atelectasis alone. I will therefore treat him as pneumonia. I ordered Levaquin. I also ordered a sputum culture as well as nasal swab for methicillin-resistant Staphylococcus aureus. The patient does report having coughed up dark yellow sputum. He also had minor hemoptysis yesterday, which since then has not reoccurred. 3. Acute pulmonary embolism. Pulmonary emboli are noted on CT performed 2 weeks ago. They are no longer seen now. Regardless, for now, I do feel that we should continue anticoagulation and the same has [place] [address] CONSULTATION Name: DAVON TESFAYE Room: [address] IN [facility]#: [id number] Admission: 03/23/18 Attend Phys: Shanta Nettles Discharge: Date of : 77 Report #: [id number] some hypercoagulability testing done during the last hospitalization. I ordered some more now this is not likely to loom changer right now; however, may have an impact on long-term plans regarding his anticoagulation. 4. Cardiomyopathy. From Cardiology notes it appears that the Cardiology impression during the last hospitalization was that this is nonischemic. The patient reports having had a stress test performed in 2011. He does not report having had any stress test or cardiac catheterization since then. I will defer to the cardiology service regarding whether more ischemic testing is performed. I favor keeping him on the package drier side as long as his creatinine tolerates, mild elevation in creatinine today is noted. Note also that he has received IV dye yesterday; therefore, for now, I would be cautious in diuresis. 5. Possible underlying obstructive sleep apnea/central sleep apnea secondary to cardiomyopathy. He may benefit from an outpatient sleep study later. 6. Elevated LFTs. These may be due to heart failure as I understand he was also seen by the Gastroenterology service during the last hospitalization. Thanks for this consultation. <ELECTRONICALLY SIGNED> By: Shelby Price MD 03/25/18 0822 [id number] taniya Ambriz
--- NOTE | 2018-03-25 09:56 | NUR ---
ASSUMED CARE OF PATIENT AFTER REPORT. PT IS ALERT AND ORIENTED X4. VITAL SIGNS TAKEN AND RECORDED. PHYSICAL ASSESSMENT COMPLETED AND CHARTED. PT ON RA WITH 96% O2 SAT. SR ON TELE. PT REQUESTED FOR ANXIETY MEDS- XANAX GIVEN. DENIES ANY PAIN OR ANY DISCOMFORT AT THIS TIME. CALL LIGHT WITHIN REACH. WILL CONTINUE TO MONITOR PT.
[2018-03-25 11:30] VITALS: BP 130/104
[2018-03-25 13:09] LABS: HEPATITIS B SURFACE AG Negative (Negative)
--- NOTE | 2018-03-25 14:37 | NUR ---
Pt is A&O. States that he has been living at his brother and RAPHAEL home. Independent with ADLS, continues to drive. No DME. No hx of HH or SNF. During Pt's last hospital stay, BENI scheduled an appt for Pt at [facility], Pt stated that he did not make it to that appt. BENI contacted and spoke with Pt's RAPHAEL, Kirti, she confirmed that Pt did not go to his appt and that Pt did not get his medications filled for 3 days after dc. Brother and RAPHAEL were willing to pay for his appt and medications. [facility] stated "Pt is full of excuses." BENI sent business card for to [facility], for Pt to f/u with Dr Maldonado at al, [facility] will call to schedule and appt for Pt on Thursday.
[2018-03-25 16:15] VITALS: BP 140/107
--- NOTE | 2018-03-25 18:21 | NUR ---
DISCONTINUED LEVONOX PER ORDER. NICOTINE PATCH STARTED-PLACED AT RIGHT SHOULDER. STILL SR ON TELE. IV LINE PATENT AND INTACT. PT ON RA WITH O2 SAT OF 96%. UP ADLIB. PT DENIES ANY PAIN OR DISCOMFORT. WILL CONTINUE TO MONITOR PT.
[2018-03-25 20:00] VITALS: BP 127/96
[2018-03-26] VITALS (7 sets, daily range): BP systolic 119–137; BP diastolic 91–99
[2018-03-26 05:01] LABS: INR 2.1
[2018-03-26 05:10] LABS: CALCIUM 8.1 mg/dL (8.5-10.1); CREATININE 1.2 mg/dL (0.6-1.3)
[2018-03-26 05:38] LABS: POTASSIUM 3.7 mmol/L (3.5-5.1)
--- NOTE | 2018-03-26 08:39 | NUR ---
PATIENT PROGRESSING TOWARDS GOALS: PATIENT'S VSS AND REMAINS IN SR THIS SHIFT. PATIENT DENIES PAIN AND DISCOMFORT. NO C/O SHORTNESS OF AIR WITH O2 SATS >92% ON ROOM AIR. ANXIETY MANAGED WITH ONE DOSE OF XANAX PRIOR TO BED. CALL LIGHT WITHIN REACH.
[2018-03-26 09:09] LABS: ANTI-DNA SCREEN <1 IU/mL (0-9); ANTI-RNP 0.2 AI (0.0-0.9)
--- NOTE | 2018-03-26 09:14 | NUR ---
PT CARE ASSUMED AT 0700. ASSESSMENT COMPLETED. PT DENIES PAIN. VSS. MORNING MEDICATIONS GIVEN. PT REQUESTING XANAX, GIVEN PER PRN ORDER. WILL CONTINUE TO MONITOR.
--- NOTE | 2018-03-26 16:31 | CON ---
[address] [address] CONSULTATION Name: DAVON TESFAYE Room: [address] IN M.R.#: [id number] Admission: 03/23/18 Attend Phys: Shanta Nettles Discharge: Date of : 77 Report #: [id number] THIS REPORT FOR: //name// CC: LENARD physician/PCP Mayank Eid DATE OF SERVICE: 03/24/2018 TYPE OF REPORT: Cardiology consultation. HISTORY OF PRESENT ILLNESS: The patient is a 42-year-old single white male who I was asked to see in the hospital today after he complained of being short of breath. The patient presented to [place] approximately 2 weeks ago after he stopped taking his blood pressure medications. He had been coughing and noticed his heart fluttering. His blood pressure is elevated. He underwent a V/Q scan of the chest that showed a small right mid lung pulmonary embolus with bilateral effusions and atelectasis. He also underwent an echocardiogram that showed an ejection fraction of only 20% with left ventricular hypertrophy, left atrial enlargement and moderate mitral regurgitation. He was felt to have a nonischemic cardiomyopathy and an incidental small pulmonary embolus. Additional workup during his hospitalization 2 weeks ago included his venous duplex scan of his legs that showed no DVT. He did undergo a thoracentesis during his hospitalization. Unfortunately, the patient had no medical insurance. He was given generic medications and eventually discharged on warfarin. Unfortunately, [facility], has not his INR checked since he left the hospital 2 weeks ago. He now smokes only a few cigarettes a day and has only rare alcohol. However, the patient notes that despite his medications, he continued to be very short of breath. He finally came to the Emergency Room last night and was admitted. He has been coughing but denies any fever. He has noticed some swelling of his feet. He denies any chest pain, palpitations or syncope. He has no energy and no appetite. PAST MEDICAL HISTORY: Significant for surgery on his right ankle following an accident. He had surgery on his right neck from the cat bite at [facility] 20 years ago. He has a history of hypertension. No diabetes or hyperlipidemia. He was sent home on warfarin, lisinopril, furosemide and carvedilol. ALLERGIES: He has an allergy to PENICILLIN. FAMILY HISTORY: His father had coronary artery bypass surgery and lives in [place], [place]. 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 He is going through a divorce. He does have a 19-year-old daughter. He plans live with his dad down at [facility]. Unfortunately, he has no insurance. He now smokes less than half pack [address] [place] [address] CONSULTATION Name: DAVON TESFAYE Room: [address] IN [facility]#: [id number] Admission: 03/23/18 Attend Phys: Shanta Nettles Discharge: Date of : 77 Report #: [id number] of cigarettes a day, used to drink alcohol on a regular basis but no longer drinks excessive alcohol. 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 He no longer abuses drugs. REVIEW OF SYSTEMS: No history of stroke. He does have a chronic cough. No history of peptic ulcer disease, liver disease, kidney disease, cancer, psychiatric illness or chronic skin condition. PHYSICAL EXAMINATION: GENERAL: Revealed a middle-aged male lying in bed, he appeared in no acute distress. VITAL SIGNS: He had a blood pressure last night of 130/90, his pulse is 100 and he was afebrile. HEENT: He is anicteric. Conjunctivae pink. Mucous members moist. NECK: Veins nondistended. CHEST: Clear to auscultation. CARDIOVASCULAR: Regular rate and rhythm. S3 gallop. Grade 2 systolic ejection murmur. ABDOMEN: Soft and nontender. EXTREMITIES: Had no pitting edema. SKIN: Cool and dry. NEUROLOGICAL: Nonfocal. RADIOLOGICAL DATA: His ECG when he came in to the Emergency Room last night showed a sinus tachycardia, left ventricular hypertrophy, repolarization changes. His workup in the Emergency Room last night, he had a chest x-ray that showed evidence of pneumonia and a right infiltrate, small effusions. CT scan of the chest using a PE protocol was done last night that showed near resolution of the pulmonary embolus, small effusions. LABORATORY DATA: Last night, he had sodium 137, BUN 15 and creatinine 1.5. Liver function studies were normal. Albumin 2.5. Troponin 0.06. His recent TSH is 3.9. Glycosylated hemoglobin was 5.9, done 03/10/2018. He had a white blood cell count of 10.4 and hemoglobin is 13.1. IMPRESSION AND RECOMMENDATIONS: 1. Dilated cardiomyopathy. The patient has bilateral pleural effusions. The patient has been on a beta davis, angiotensin-converting enzyme inhibitor, spironolactone and Lasix. His prognosis is obviously guarded. 2. Small pulmonary embolus. The patient has been anticoagulated. However, he has not had INR checked since he left the hospital because his lack of insurance. Therefore, his INR is only 1.3 on admission. 3. Tobacco abuse. The patient is now smoking less cigarettes. 4. Chronic bronchitis. [place] [address] CONSULTATION Name: DAVON TESFAYE Room: [address] IN M.R.#: [id number] Admission: 03/23/18 Attend Phys: Shanta Nettles Discharge: Date of : 77 Report #: [id number] 5. Previous alcohol abuse. 6. History of illicit drug use. <ELECTRONICALLY SIGNED> By: Gabino Huddleston MD, FACC 03/26/18 1631 1642 [id number] Huddleston MD, FACC /nt
[2018-03-26] MEDS ORDERED: LASIX 40 MG TAB40 M2 PO (18:26)
--- NOTE | 2018-03-26 18:42 | NUR ---
HAD TRIED TO CALL DR REINA MULTIPLE TIMES TO DISCUSS DISCHARGE. NO RETURN CALL. SPOKE WITH DR LOPEZ WHO IS SHORT FILLER BUNCH MACHINE OPERATOR THIS EVENING. DISCHARGE ORDER RECEIVED AND INTRUCTIONS TO CALL IN ONE MONTH OF MEDICATIONS FOR PTS.
--- NOTE | 2018-03-26 20:42 | NUR ---
d/c note: social work professor removed, IV removed. Pt understands all d/c instructions, copies given and put in chart. Pt taken out by Erlindaearl abbott by wheelchair.
== END 2018-03-26 20:53 | disposition home or self-care (01) | DRG 291 ==
LOC: M.ERS 17:38 → M.2W 22:59 → M.TBA-ER 22:59 → M.2W 23:45
PROVIDERS: Emergency Medicine; Internal Medicine; Internal Medicine Cardiovascular Disease; Internal Medicine Critical Care Medicine; Personal Emergency Response Attendant; ADMIT Internal Medicine
DX: I50.21 Acute systolic (congestive) heart failure (principal); I26.09 Other pulmonary embolism with acute cor pulmonale; I42.0 Dilated cardiomyopathy; E44.0 Moderate protein-calorie malnutrition; B18.1 Chronic viral hepatitis B without delta-agent; G47.33 Obstructive sleep apnea (adult) (pediatric); J44.9 Chronic obstructive pulmonary disease, unspecified; R80.9 Proteinuria, unspecified; F12.10 Cannabis abuse, uncomplicated; I11.0 Hypertensive heart disease with heart failure; F41.9 Anxiety disorder, unspecified; F17.210 Nicotine dependence, cigarettes, uncomplicated; Z88.0 Allergy status to penicillin; Z91.040 Latex allergy status; Z82.49 Family history of ischemic heart disease and other diseases of the circulatory system; Z68.21 Body mass index [BMI] 21.0-21.9, adult; Z79.2 Long term (current) use of antibiotics; Z79.01 Long term (current) use of anticoagulants; Z79.899 Other long term (current) drug therapy

== ENCOUNTER 2018-06-27 23:09 | Emergency (ER) | payer OTHER ==
[~2018-06-27] VITALS: Ht 185.4 cm; Wt 75.8 kg
[~2018-06-27 23:09] MED LIST changes: +LASIX 20 MG TAB20 MG PO; +LASIX 40 MG TAB40 M2 PO
[2018-06-27] MEDS ORDERED: KEFLEX500 M1 PO (23:34)
[2018-06-27] MEDS ORDERED: NORCO 5-325 TA1 EAC1 PO (23:34)
[2018-06-27 23:56] VITALS: BP 183/122
== END 2018-06-27 23:58 | disposition home or self-care (01) ==
LOC: M.ERS 23:09
DX: S61.301A Unspecified open wound of left index finger with damage to nail, initial encounter (principal); I10 Essential (primary) hypertension; F17.210 Nicotine dependence, cigarettes, uncomplicated; Z88.0 Allergy status to penicillin; Z91.040 Latex allergy status; W26.0XXA Contact with knife, initial encounter; Y93.89 Activity, other specified; Y92.89 Other specified places as the place of occurrence of the external cause; Y99.8 Other external cause status

== ENCOUNTER 2019-07-20 07:43 | Inpatient (IN) | payer OTHER ==
[~2019-07-20] VITALS: Ht 182.9 cm; Wt 69.4 kg
[~2019-07-20 07:43] MED LIST changes: +ACCUPRIL40 MG PO; +ASA81BEC PO; +CARVEDILOL12.5 MG PO; +IPRAT-ALBUT 0.5-3 ML INH; +KEFLEX500 M1 PO; +NORCO 5-325 TA1 EAC1 PO; +PREDNISONE 10 M10 MG PO; +SPIRONOLACTONE25 MG PO
[2019-07-20 07:47] VITALS: BP 140/100
[2019-07-20] MEDS ORDERED: COREG25 MG PO (07:51)
[2019-07-20] MEDS ORDERED: COUMADIN 5 MG TA5 M1 PO (07:52)
[2019-07-20] MEDS ORDERED: LISINOPRIL20 MG PO (07:52)
[2019-07-20 08:21] LABS: ABSOLUTE BASOPHILS 0.1 thou/uL (0.0-0.2); ABSOLUTE EOSINOPHILS 0.2 thou/uL (0.0-0.7); ABSOLUTE LYMPHOCYTES 2.2 thou/uL (0.8-5.3); ABSOLUTE MONOCYTES 0.7 thou/uL (0.0-1.2); ABSOLUTE NEUTROPHILS 6.1 thou/uL (1.6-8.1); BASOPHILS 1.1 %; EOSINOPHILS 1.7 %; HEMATOCRIT 36.9 % (42.0-52.0); HEMOGLOBIN 12.2 gm/dL (14.0-18.0); LYMPHOCYTES 23.9 %; MCH 30.1 pg (26.0-34.0); MCHC 33.2 g/dL (28.0-37.0); MCV 90.7 fL (80.0-100.0); MONOCYTES 7.3 %; NUCLEATED RBCS 0 /100WBC; PLATELET COUNT* 350 thou/uL (150-400); RBC 4.07 mil/uL (4.50-6.00); RDW-CV 14.5 % (10.5-14.5); WBC 9.3 thou/uL (4.0-11.0)
[2019-07-20 08:25] LABS: CALCIUM 8.3 mg/dL (8.5-10.1); CREATININE 1.4 mg/dL (0.6-1.3); POTASSIUM 5.4 mmol/L (3.5-5.1)
[2019-07-20 08:29] LABS: ALBUMIN 2.2 g/dL (3.4-5.0); TOTAL BILIRUBIN 0.3 mg/dL (<0.1-1.0)
[2019-07-20 08:40] LABS: BE -0.5 mmol/L (-2 to +3); PCO2 32.5 mmHg (35.0-45.0); PO2 90.9 mmHg (75.0-100.0); pH 7.461 (7.340-7.450)
[2019-07-20 09:00] LABS: PROTIME 10.1 Seconds (9.20-11.50)
[2019-07-20 10:39] LABS: NT-PRO BRAIN NAT PEPTIDE 5893 pg/mL (<300); TROPONIN-I LEVEL <0.06 ng/mL (<0.06)
--- NOTE | 2019-07-20 11:20 | EKG ---
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 : 1975 Requested By: Nishi Saavedra Order Number: [id number] Laura MD: Gabino Huddleston Measurements Intervals [place] Rate: 85 P: 63 WI: 158 QRS: 50 QRSD: 103 T: 159 QT: 410 QTc: 488 Interpretive Statements Sinus rhythm Probable left atrial enlargement LVH with secondary repolarization abnormality Borderline prolonged QT interval Compared to ECG 05/18/2019 17:05 no change Electronically Signed On 07-20-2019 11:20:45 CDT by Gabino Huddleston [email or web address] <ELECTRONICALLY SIGNED> By: Gabino Huddleston MD, [facility] 07/20/19 1120 [id number] Gabino Huddleston MD, FACC /EPI
[2019-07-20 12:48] VITALS: BP 154/109
--- NOTE | 2019-07-20 13:34 | NUR ---
PT ADMITTED ON TELE FLOOR. VSS SEE CHART. SR ON FRAME FIXER. PT IS VERY LETHARGIC, OPEN EYES AND RESPONDS TO YES OR NO QUESTIONS BUT IS NOT INTERACTIVE. PT REQUESTED THAT HE BE LEFT ALONE FOR A COUPLE MINUTES SO HE CAN REST BEFORE ADMISSION HX CAN BE DONE. LUNG SOUNDS ARE DIMINISHED. RT PROTOCOL INTIATED PT PUT ON 2 L NC BECUSE OF SOB. HOB ELEVATED AT 45 DEGREE. FALL PRECAUTION IN PLACE. CALL LIGHT AT REACH. YELLOW SOCKS ON. WILL PORCEED WITH ADMISSION WHNE PT IS AWAKE
[2019-07-20 13:45] VITALS: BP 105/84
[2019-07-20 16:00] VITALS: BP 151/113
--- NOTE | 2019-07-20 16:24 | NUR ---
PT IS MORE AWAKE , ADMISSION HS DONE AT BEDSIDE , PT COOPORATED. PT IS HAVING LESS SOB, O2 ON AT 2 L NC. NICOTINE PACTH ORDERED. PT BROUGHT WITH HIM HIS PILLS WHICH ARE SENT TO PHARMACY.
[2019-07-20 17:01] LABS: INR 1.1; PROTIME 11.7 Seconds (9.20-11.50)
[2019-07-20 18:38] LABS: URINE BILIRUBIN NEGATIVE (Negative); URINE BLOOD NEGATIVE (Negative); URINE CLARITY CLEAR; URINE COLOR YELLOW; URINE GLUCOSE-RANDOM NEGATIVE (Negative); URINE KETONES NEGATIVE (Negative); URINE LEUKOCYTES-REFLEX NEGATIVE (Negative); URINE NITRITE-REFLEX NEGATIVE (Negative); URINE PROTEIN NEGATIVE (Negative); URINE UROBILINOGEN 0.2 E.U./dl (0.2-1.0)
--- NOTE | 2019-07-20 19:20 | NUR ---
pt requested some anxiety medicine at shift change. was paged about the request. awaiting for order
[2019-07-20 20:00] VITALS: BP 144/111
[2019-07-20 20:29] LABS: AMP/METHAMP Negative (Negative); BARBITURATES Negative (Negative); BENZODIAZEPINES Negative (Negative); COCAINE Negative (Negative); METHADONE Negative (Negative); OPIATES Negative (Negative); PCP Negative (Negative); THC Negative (Negative)
[2019-07-21] VITALS: BP 144/110
[2019-07-21 04:00] VITALS: BP 146/104
[2019-07-21 04:52] LABS: HEMATOCRIT 36.3 % (42.0-52.0); HEMOGLOBIN 11.8 gm/dL (14.0-18.0); MCH 29.3 pg (26.0-34.0); MCHC 32.4 g/dL (28.0-37.0); MCV 90.2 fL (80.0-100.0); MPV 9.1 fl. (7.2-11.1); NUCLEATED RBCS 0 /100WBC; PLATELET COUNT* 321 thou/uL (150-400); RBC 4.02 mil/uL (4.50-6.00); RDW-CV 14.4 % (10.5-14.5); WBC 14.7 thou/uL (4.0-11.0)
[2019-07-21 05:01] LABS: CALCIUM 8.3 mg/dL (8.5-10.1); CREATININE 1.6 mg/dL (0.6-1.3); POTASSIUM 5.4 mmol/L (3.5-5.1)
[2019-07-21 05:24] LABS: PROTIME 22.7 Seconds (9.20-11.50)
--- NOTE | 2019-07-21 05:25 | NUR ---
PT A&O X4, MAINTINING O2 SATS ON 2L VIA NC. NO C/O PAIN STATED BY PT. HE DID REPORT AN ANXIETY LEVEL OF 8/10. RECIEVED PRN ORDER. PT ABLE TO SLEEP WELL THROUGH OUT THE NIGHT. IS ON STRICT I&O FOR HX OF CHF. PT IS IN BED RESTING WITH CALL LIGHT WITHIN REACH.
[2019-07-21 05:37] LABS: INR 2.3
[2019-07-21 05:42] LABS: ABSOLUTE MONOCYTES 0.3 thou/uL (0.0-1.2); ABSOLUTE NEUTROPHILS 13.4 thou/uL (1.6-8.1); ANISOCYTOSIS 1+; PLATELET ESTIMATE ADEQUATE; POIKILOCYTOSIS 1+
--- NOTE | 2019-07-21 07:10 | NUR ---
CHANGE OF SHIFT, BEDSIDE REPORT GIVEN PATIENT SEEN IN BED ASLEEP ASSUMED PATIENT CARE
[2019-07-21 08:00] VITALS: BP 143/104
[2019-07-21 12:00] VITALS: BP 137/98
--- NOTE | 2019-07-21 14:38 | NUR ---
Pt is A&O. Resides at home alone. No DME. No hx of HH or SNF. Reena from [facility] here to assess for [place] NIRMALA. Per Reena, a NIRMALA kirill was taken when Pt was recently at [facility], she will f/u and keep CM posted. Following.
[2019-07-21 16:23] VITALS: BP 150/96
[2019-07-21 20:26] VITALS: BP 140/87
[2019-07-22] VITALS: BP 155/100
[2019-07-22 04:00] VITALS: BP 158/104
[2019-07-22 04:30] LABS: ABSOLUTE BASOPHILS 0.2 thou/uL (0.0-0.2); ABSOLUTE EOSINOPHILS 0.1 thou/uL (0.0-0.7); ABSOLUTE LYMPHOCYTES 2.3 thou/uL (0.8-5.3); ABSOLUTE MONOCYTES 0.9 thou/uL (0.0-1.2); ABSOLUTE NEUTROPHILS 8.5 thou/uL (1.6-8.1); BASOPHILS 1.3 %; EOSINOPHILS 1.2 %; HEMATOCRIT 33.5 % (42.0-52.0); LYMPHOCYTES 19.4 %; MCH 29.6 pg (26.0-34.0); MCHC 32.9 g/dL (28.0-37.0); MCV 89.8 fL (80.0-100.0); MONOCYTES 7.3 %; MPV 8.5 fl. (7.2-11.1); NUCLEATED RBCS 0 /100WBC; PLATELET COUNT* 311 thou/uL (150-400); POLYS 70.8 %; RBC 3.74 mil/uL (4.50-6.00); RDW-CV 14.5 % (10.5-14.5)
[2019-07-22 04:46] LABS: INR 3.3; PROTIME 32.8 Seconds (9.20-11.50)
[2019-07-22 05:01] LABS: CALCIUM 7.8 mg/dL (8.5-10.1); CREATININE 1.4 mg/dL (0.6-1.3)
[2019-07-22 05:02] LABS: POTASSIUM 4.2 mmol/L (3.5-5.1)
[2019-07-22 07:58] VITALS: BP 149/99
--- NOTE | 2019-07-22 08:17 | NUR ---
PT IS ABLE TO COMMUNICATE HIS NEEDS TO STAFF EFFECTIVELY. HE HAS DENIED THE NEED FOR PAIN MEDICATION DURING WOOL HANKER UP TO 0700 TODAY. POSSIBLE DISCHARGE LATER TODAY. PT CURRENTLY ON WARFARIN AND LOVENOX.
--- NOTE | 2019-07-22 09:30 | NUR ---
ASSUMED CARE OF PT THIS AM AROUND 0715- MANAGER NC IN PLACE ORDERED, TRACING SR/ST-UPON ASSESSMENT PT NOTED TO BE RESTING IN BED- PT A&O X4- CONTINENT OF BOWEL AND BLADDER- UP AD-SONJA IN ROOM, STEADY GAIT NOTED- COURSE LUNG SOUNDS NOTED WITH WHEEZING; NON-PRODUCTIVE COUGH- VSS, O2 SAT 96% ON RA- ABD SOFT/ROUND/NON-TENDER, BS X4 QUADS- LAST BM REPORTED 07/21/19- IV NOTED TO RIGHT AC INACT AND SL, IV ABT GIVEN THIS AM PRESICBED- GOOD PO INTAKE NOTED THIS AM WITH BREAKFAST- CARDIO CONSULTED THIS AM R/T CARDIOMYOPATHY/CHF- CHEST X-RAY COMPLETED THIS AM PRESCRIBED, RESULTS NOTED IN CHART- PT DENIES ANY C/O PAIN/DISCOMFORT AT THIS TIME- CALL LIGHT AND PERSONAL BELONGINGS WITH IN REACH- PT MAKES NEEDS KNOWN- ALL NEEDS MET AT THIS TIME-WCTM
[2019-07-22 12:00] VITALS: BP 140/93
[2019-07-22 16:21] VITALS: BP 142/102
--- NOTE | 2019-07-22 16:21 | CON ---
[address] [address] CONSULTATION Name: DAVON TESFAYEON Room: [address] IN M.R.#: [id number] Admission: 07/20/19 Attend Phys: Mica Champion MD Discharge: Date of : 77 Report #: [id number] THIS REPORT FOR: //name// CC: LENARD physician/PCP Mica Champion DATE OF SERVICE: 07/22/2019 CARDIOLOGY CONSULTATION HISTORY OF PRESENT ILLNESS: The patient is a 44-year-old single white male who I was asked to see in the hospital today after complained of being short of breath. The patient has been a smoker in the past. He initially presented in 02/2018 here to [facility] with shortness of breath. He had been a smoker. In the Emergency Room, he was noted to have elevated blood pressure. He did have a history of hypertension. Workup in 02/2018 included an echocardiogram that showed an ejection fraction of only 20%, left ventricular hypertrophy, left atrial enlargement, moderate mitral regurgitation. He underwent a nuclear stress test in April of this year here at [facility] that showed the following results: There was ejection fraction again of only 25%, but no ischemia. He had a repeat echocardiogram in April that again confirmed an ejection fraction of 25%. The patient initially had been placed on lisinopril and carvedilol, but quit taking his medications because he had no insurance and cannot afford them. Recently, the patient again complained of shortness of breath and cough. He went to the Emergency Room in [place], [place], and was transferred to [facility] where he was just admitted last week for 5 days. He was told he continued to have evidence of pulmonary embolus and was placed back on warfarin. He was discharged 2 days ago, but continued to complain of being short of breath. He therefore had his brother driving to [facility] and was admitted yesterday after being discharged 1 day previously from [facility]. He denies any edema, orthopnea, chest pain, palpitations, or syncope. PAST MEDICAL HISTORY: Significant for no major surgical procedures. He does have a history of hypertension. No history of diabetes. ALLERGIES: HE HAS AN ALLERGY TO PENICILLIN. FAMILY HISTORY: His father had heart disease. 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 REVIEW OF SYSTEMS: He has had no history of stroke, liver disease, kidney disease, cancer, psychiatric illness, [place] [address] CONSULTATION Name: MERADAVONON Room: [address] IN M.R.#: [id number] Admission: 07/20/19 Attend Phys: Mica Champion MD Discharge: Date of : 77 Report #: [id number] PHYSICAL EXAMINATION: GENERAL: Revealed a middle-aged male lying in bed. He appeared in no distress. VITAL SIGNS: He had a blood pressure of 140/80, pulse was 90, he was afebrile. HEENT: He was anicteric. Conjunctivae were pink. Mucous membranes moist. NECK: Veins do not appear distended. CHEST: Decreased breath sounds in both lung elizabeth. CARDIOVASCULAR: Regular rate and rhythm, S4, gallop. No significant murmur. ABDOMEN: Soft. EXTREMITIES: Had no edema. Posterior tibial pulse 2+ bilaterally. SKIN: Warm and dry. NEUROLOGIC: Nonfocal. RADIOLOGICAL DATA: His ECG showed a sinus rhythm, left ventricular hypertrophy, repolarization changes. Workup since he has been here at [facility], he had another CT scan of the chest using a PE protocol that showed no filling defect to suggest acute pulmonary embolus, cardiomegaly. His chest x-ray showed small effusions. Pulmonary vasculature actually appeared normal. LABORATORY WORK: Sodium 138, potassium 4.2, BUN 22, creatinine 1.4. SGOT 114, SGPT 135, alkaline phosphatase is 118, albumin 2.0. TSH 3.8. White blood cell count 12.0, hemoglobin 11. His INR is 3.3. IMPRESSION AND RECOMMENDATIONS: 1. Dilated nonischemic cardiomyopathy. Reason unclear. I would recommend an THEO inhibitor, beta davis, Aldactone, and Lasix as needed. 2. Chronic obstructive pulmonary disease. 3. Tobacco abuse. The patient continues to smoke. 4. History of pulmonary embolus. The patient has been anticoagulated in the past. 5. History of hypertension. 6. History of illicit drug use. <ELECTRONICALLY SIGNED> By: Gabino Huddleston MD, [facility] 07/22/19 1621 0932 [id number] Huddleston MD, FAC /nt
--- NOTE | 2019-07-22 16:52 | NUR ---
PT CURRENTLY RESTING IN BED, FAMILY AT SIDE VISITING- SASH STICKER IN PLACE ORDERED, TRACING SR- IV NOTED TO RIGHT AC INTACT AND SL- GOOD PO INTAKE NOTED THIS SHIFT WITH MEALS- EDUCATION ABOUT NEEDED SPUTUM GIVEN WITH CONTAINER TO COLLECT AT BEDSIDE- PT MAKES NEEDS KNOWN- ALL NEEDS MET AT THIS TIME-WCTM
[2019-07-22 20:28] VITALS: BP 141/98
[2019-07-23] VITALS: BP 142/99; BP 172/91
[2019-07-23 04:00] VITALS: BP 136/100
[2019-07-23 04:38] LABS: ABSOLUTE BASOPHILS 0.1 thou/uL (0.0-0.2); ABSOLUTE EOSINOPHILS 0.3 thou/uL (0.0-0.7); ABSOLUTE LYMPHOCYTES 2.8 thou/uL (0.8-5.3); ABSOLUTE MONOCYTES 0.9 thou/uL (0.0-1.2); ABSOLUTE NEUTROPHILS 5.3 thou/uL (1.6-8.1); BASOPHILS 1.4 %; EOSINOPHILS 3.2 %; HEMATOCRIT 36.7 % (42.0-52.0); HEMOGLOBIN 12.1 gm/dL (14.0-18.0); LYMPHOCYTES 29.5 %; MCH 29.7 pg (26.0-34.0); MCV 89.9 fL (80.0-100.0); MONOCYTES 9.3 %; MPV 8.6 fl. (7.2-11.1); NUCLEATED RBCS 0 /100WBC; PLATELET COUNT* 370 thou/uL (150-400); POLYS 56.6 %; RBC 4.08 mil/uL (4.50-6.00); RDW-CV 14.7 % (10.5-14.5); WBC 9.3 thou/uL (4.0-11.0)
[2019-07-23 04:46] LABS: PROTIME 16.9 Seconds (9.20-11.50)
[2019-07-23 04:51] LABS: INR 1.7
[2019-07-23 04:53] LABS: ALBUMIN 2.2 g/dL (3.4-5.0); CALCIUM 8.3 mg/dL (8.5-10.1); CREATININE 1.2 mg/dL (0.6-1.3); POTASSIUM 4.2 mmol/L (3.5-5.1); TOTAL BILIRUBIN 0.2 mg/dL (<0.1-1.0); TOTAL PROTEIN 5.7 g/dL (6.4-8.2)
--- NOTE | 2019-07-23 05:27 | NUR ---
PT IS ABLE TO COMMUNICATE HIS NEEDS TO STAFF EFFECTIVELY. HE HAS DENIED THE NEED FOR PAIN MEDICATION UP TO THIS TIME. POSSIBLE DISCHARGE LATER TODAY.
[2019-07-23 08:17] VITALS: BP 141/97
[2019-07-23 08:40] VITALS: BP 141/97
--- NOTE | 2019-07-23 09:18 | NUR ---
ASSUMED CARE OF PT THIS AM AROUND 0715- WILDLIFE CONSERVATION OFFICER IN PLACE ORDERED, TRACING ST- UPON ASSESSMENT PT NOTED TO BE RESTING IN BED. WATCHING TV- PT A&O X-4- CONTINENT OF BOWEL AND BLADDER- UP AD-SONJA IN ROOM, STEADY GAIT NOTED- LCTA, RESP EVEN AND UN-LABORED- VSS, O2 SAT 97% ON RA- ABD SOFT/ROUND/FLAT, BS X4 QUADS- BM REPORTED THIS AM- IV NOTED TO RIGHT AC INTACT AND SL, IV ABT GIVEN THIS AM PRESCRIBED- DENIES ANY C/O PAIN/DISCOMFORT AT THIS TIME- MAKES NEEDS KNOWN- ALL NEEDS MET AT THIS TIME-WCTM
[2019-07-23] MEDS ORDERED: NICOTINE TRANSD21 M1 (11:03)
[2019-07-23] MEDS ORDERED: DOXYCYCLINE 10100 MG PO (11:04)
--- NOTE | 2019-07-23 11:50 | NUR ---
ORDERS RECIEVED FOR OKAY TO D/C TO HOME THIS SHIFT PER - IV TO RIGHT AC D/C'D ALONG WITH [employer] DIVER PRIOR TO D/C- D/C EDUCATION/TEACHING/NEEDED FOLLOW UP'S COMMUNICATED TO PT WITH ALL QUESTIONS AND CONCERNS ADDRESSED- WRITTEN EDUCATION ALONG WITH SCRIPTS PROVIED TO PT PRIOR TO D/C- PT EDUCATED ON NEED FOR PT/INR LAB DRAW ON 07/25/19 WITH RESULTS COMMUNCATED TO PCP AND CASING FINISHER AND STUFFER; PT VERBALIZED UNDERSTANDING- BELONGINGS PACKED AND ACCOUNTED FOR PER PT- PT CURRENTLY DRESSED UP IN CHAIR AWAITING RIDE FOR D/C- ALL NEEDS MET AT THIS TIME-WCTM
== END 2019-07-23 12:07 | disposition home or self-care (01) | DRG 177 ==
LOC: M.ERS 07:43 → M.2W 11:52 → M.TBA-ER 11:52 → M.2W 13:21
PROVIDERS: Internal Medicine; Personal Emergency Response Attendant; ADMIT Family Medicine
DX: J15.6 Pneumonia due to other Gram-negative bacteria (principal); I26.99 Other pulmonary embolism without acute cor pulmonale; I50.43 Acute on chronic combined systolic (congestive) and diastolic (congestive) heart failure; I27.82 Chronic pulmonary embolism; I42.0 Dilated cardiomyopathy; I13.0 Hypertensive heart and chronic kidney disease with heart failure and stage 1 through stage 4 chronic kidney disease, or unspecified chronic kidney disease; B19.10 Unspecified viral hepatitis B without hepatic coma; J44.9 Chronic obstructive pulmonary disease, unspecified; F17.210 Nicotine dependence, cigarettes, uncomplicated; K74.60 Unspecified cirrhosis of liver; N18.3 Chronic kidney disease, stage 3 (moderate); F10.11 Alcohol abuse, in remission; F19.11 Other psychoactive substance abuse, in remission; F41.9 Anxiety disorder, unspecified; Z88.0 Allergy status to penicillin; Z91.040 Latex allergy status; Z79.01 Long term (current) use of anticoagulants; Z79.899 Other long term (current) drug therapy; Z82.49 Family history of ischemic heart disease and other diseases of the circulatory system; Z63.5 Disruption of family by separation and divorce; Z71.6 Tobacco abuse counseling; Z91.14 Patient's other noncompliance with medication regimen

== ENCOUNTER 2019-08-15 16:06 | Inpatient (IN) | payer OTHER ==
[~2019-08-15] VITALS: Ht 185.4 cm; Wt 67.4 kg
[~2019-08-15 16:06] MED LIST changes: +COREG25 MG PO; +COUMADIN 5 MG TA5 M1 PO; +DOXYCYCLINE 10100 MG PO; +LISINOPRIL20 MG PO; +NICOTINE TRANSD21 M1
[2019-08-15 16:12] VITALS: BP 174/129
[2019-08-15 16:43] LABS: ABSOLUTE BASOPHILS 0.1 thou/uL (0.0-0.2); ABSOLUTE EOSINOPHILS 0.2 thou/uL (0.0-0.7); ABSOLUTE LYMPHOCYTES 2.4 thou/uL (0.8-5.3); ABSOLUTE MONOCYTES 0.6 thou/uL (0.0-1.2); BASOPHILS 1.3 %; EOSINOPHILS 2.7 %; HEMATOCRIT 34.6 % (42.0-52.0); HEMOGLOBIN 11.6 gm/dL (14.0-18.0); LYMPHOCYTES 33.1 %; MCH 29.5 pg (26.0-34.0); MCHC 33.5 g/dL (28.0-37.0); MONOCYTES 7.8 %; MPV 8.4 fl. (7.2-11.1); NUCLEATED RBCS 0 /100WBC; PLATELET COUNT* 236 thou/uL (150-400); POLYS 55.1 %; RBC 3.93 mil/uL (4.50-6.00); RDW-CV 15.1 % (10.5-14.5); WBC 7.3 thou/uL (4.0-11.0)
[2019-08-15 16:47] LABS: INR 2.1; PROTIME 21.4 Seconds (9.20-11.50)
[2019-08-15 16:48] LABS: CALCIUM 8.6 mg/dL (8.5-10.1); CREATININE 1.4 mg/dL (0.6-1.3); POTASSIUM 4.7 mmol/L (3.5-5.1)
[2019-08-15 17:07] LABS: ALBUMIN 2.4 g/dL (3.4-5.0); TOTAL BILIRUBIN 0.5 mg/dL (<0.1-1.0); TOTAL PROTEIN 5.8 g/dL (6.4-8.2)
--- NOTE | 2019-08-15 18:13 | NUR ---
HASEEB NOTIFIED UPON PT RETURN FROM CT. PT CONNECTED TO MONITOR
[2019-08-15 20:00] VITALS: BP 184/137
[2019-08-15 20:11] VITALS: BP 170/120
[2019-08-16] VITALS: BP 176/114
[2019-08-16 04:00] VITALS: BP 146/102
--- NOTE | 2019-08-16 07:31 | NUR ---
REPORT RECEIVED FROM ASAD IN ED. PT ARRIVED TO ROOM PER CART @ 2004. AMBULATED TO BED WITH STEADY GAIT. MEDS VERIFIED. ORDERS OBTAINED. ADMISSION COMPLETE. PT DENIED PAIN. NO RESPIRATORY DISTRESS NOTED OR OBSERVED. PT SLEPT MOST OF SHIFT. BM 08/15. PT ALSO HAS CELLPHONE AND VAT WASHER WITH BELONGINGS. CALL LIGHT IN REACH. HOURLY ROUNDING FOR SAFETY.
[2019-08-16 08:00] VITALS: BP 148/111
--- NOTE | 2019-08-16 08:45 | EKG ---
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 : 1975 Requested By: Wilton Kruse Order Number: [id number] MD: Ky Maldonado Measurements Intervals [place] Rate: 91 P: 58 CO: 148 QRS: 42 QRSD: 100 T: 196 QT: 401 QTc: 494 Interpretive Statements Sinus rhythm Left atrial enlargement LVH with secondary repolarization abnormality Anterior ST elevation, probably due to LVH Borderline prolonged QT interval Baseline wander in lead(s) V2 Compared to ECG 07/20/2019 07:55:39 ST (T wave) deviation now present Electronically Signed On 08-16-2019 8:44:45 CDT by Ky Maldonado [email or web address] <ELECTRONICALLY SIGNED> By: Ky Maldonado MD, FACC 08/16/19 0844 1646 1646 Ky Maldonado MD, FACC /EPI
[2019-08-16 11:50] VITALS: BP 135/90
--- NOTE | 2019-08-16 13:13 | NUR ---
MET WITH PT TO DISCUSS HOME SITUATION/DC PLANNING. PT LIVE ALONE, FATHER LIVES CLOSEBY AND IS SUPPORTIVE. PT IS UNINSURED. [employer] HERE THIS AFTERNOON AND TALKED WITH PT ABOUT HIS MEDICAID FOUZ[place], IS STILL NEEDING TO PROVIDE BANK STATEMENTS AND TX RETURN. PT AWARE. PT STATES HE STILL HAS MEDS AT HOME AND THEY HAVE REFILLS ON THEM. GETS HIS MEDS AT [facility]. HE PLANS TO F/U WITH A IN [place]. WILL FOLLOW
--- NOTE | 2019-08-16 15:05 | 2DMMODE ---
[place] [address] 2 D/M-MODE ECHOCARDIOGRAM Name: DAVON TESFAYE Room: [address] IN [facility]#: [id number] Admission: 08/15/19 Attend Phys: Shadi guzman Sa Discharge: Date of : 77 Date of Service: 08/16/19 1505 Report #: [id number] THIS REPORT FOR: //name// APPROVED REPORT Study performed: 08/16/2019 11:39:24 EXAM: Comprehensive 2D, Doppler, and color-flow Echocardiogram Patient Location: In-Patient Room #: [facility] Status: routine BSA: 1.93 HR: 66 bpm BP: 148/111 mmHg Rhythm: NSR Other Information Study Quality: Good Indications Pulmonary Embolism 2D Dimensions IVSd: 13.69 (7-11mm) LVOT Diam: 20.92 (18-24mm) LVDd: 52.09 mm PWd: 12.10 (7-11mm) LVDs: 44.99 (25-40mm) Aortic Root: 36.13 mm Volumes Left Atrial Volume (Systole) LA ESV Index: 36.10 mL/m2 Aortic Valve AoV Peak Ok.: 0.92 m/s AO Peak Gr.: 3.37 mmHg LVOT Max P.18 mmHg AO Mean Gr.: 1.99 mmHg LVOT Mean P.49 mmHg LVOT Max V: 0.89 m/s AO V2 VTI: 13.39 cm LVOT Mean V: 0.56 m/s BEHZAD (VTI): 3.49 cm2 LVOT V1 VTI: 13.62 cm Mitral Valve E/A Ratio: 0.87 MV Decel. Time: 201.92 ms MV E Max Ok.: 0.77 m/[place] [address] 2 D/M-MODE ECHOCARDIOGRAM Name: DAVON TESFAYE Room: [address]#: [id number] Admission: 08/15/19 Attend Phys: Shadi eugene los Sa Discharge: Date of : 77 Date of Service: 08/16/19 1505 Report #: [id number] MV PHT: 58.56 ms MVA (PHT): 3.76 cm2 TDI E/Lateral E': 12.83 Lateral E' Ok.: 0.06 m/s Pulmonary Valve PV Peak Ok.: 0.71 m/s PV Peak Gr.: 2.01 mmHg Left Ventricle The left ventricle is normal size. There is global hypokinesis of the left ventricle. Mild concentric left ventricular hypertrophy. Left ventricular systolic function is severely decreased. LVEF is 25-30%. Grade I - abnormal relaxation pattern. Right Ventricle The right ventricle is normal size. The right ventricular systolic function is normal. Atria Left atrium is mildly dilated. The right atrium size is normal. Aortic Valve The aortic valve is normal in structure. No aortic regurgitation is present. There is no aortic valvular stenosis. Mitral Valve The mitral valve is normal in structure. Trace mitral regurgitation. No evidence of mitral valve stenosis. Tricuspid Valve The tricuspid valve is normal in structure. There is no tricuspid valve regurgitation noted. Pulmonic Valve The pulmonary valve is normal in structure. There is no pulmonic valvular regurgitation. Great Vessels The aortic root is normal in size. IVC is normal in size and collapses >50% with inspiration. Pericardium There is no pericardial [place] [address] 2 D/M-MODE ECHOCARDIOGRAM Name: DAVON TESFAYE Room: [address] IN .R.#: [id number] Admission: 08/15/19 Attend Phys: Shadi guzman Sa Discharge: Date of : 77 Date of Service: 08/16/19 1505 Report #: [id number] effusion. <Conclusion> The left ventricle is normal size. Mild concentric left ventricular hypertrophy. Left ventricular systolic function is severely decreased. LVEF is 25-30%. Grade I - abnormal relaxation pattern. There is global hypokinesis of the left ventricle. Left atrium is mildly dilated. Trace mitral regurgitation. IVC is normal in size and collapses >50% with inspiration. <ELECTRONICALLY SIGNED> By: Ky Maldonado MD, FACC 08/16/19 1505 04 04 Ky Maldonado MD, FACC /INF
[2019-08-16 15:46] VITALS: BP 118/81
--- NOTE | 2019-08-16 19:46 | NUR ---
ASSUSSMED CARE OF PT APPROX 0730. REASSESSMENT COMPLETED CHARTED. MEDICATIONS GIVEN CHARTED. SAFTEY PRECAUTIONS IN PLACE. HOURLY ROUNDED FOR SAFTEY. PT HAS BEEN SLEEPING MOST OF THE SHIFT. PT ENCOURAGED TO GET UP TO BEDSIDE CHAIR. PT NEEDS MET. PERSONAL ITEMS AND CALL LIGHT WITHIN REACH.
[2019-08-16 19:50] VITALS: BP 118/74
[2019-08-17] VITALS: BP 120/74
[2019-08-17 04:00] VITALS: BP 132/81
--- NOTE | 2019-08-17 06:44 | NUR ---
VSS. SEE MAR. SEE CHARTING. HOURLY ROUNDING FOR SAFETY.
[2019-08-17 08:00] VITALS: BP 128/75
[2019-08-17 09:44] LABS: BASOPHILS 0.1 %; HEMATOCRIT 44.2 % (42.0-52.0); LYMPHOCYTES 2.5 %; MCH 28.8 pg (26.0-34.0); MCHC 32.9 g/dL (28.0-37.0); MCV 87.4 fL (80.0-100.0); MONOCYTES 3.8 %; MPV 8.4 fl. (7.2-11.1); NUCLEATED RBCS 0 /100WBC; POLYS 93.6 %; RBC 5.06 mil/uL (4.50-6.00); RDW-CV 15.4 % (10.5-14.5)
[2019-08-17 09:47] LABS: ABSOLUTE LYMPHOCYTES 0.6 thou/uL (0.8-5.3); ABSOLUTE MONOCYTES 0.9 thou/uL (0.0-1.2); ABSOLUTE NEUTROPHILS 21.6 thou/uL (1.6-8.1); HEMOGLOBIN 14.5 gm/dL (14.0-18.0); PLATELET COUNT* 339 thou/uL (150-400); WBC 23.1 thou/uL (4.0-11.0)
[2019-08-17 10:07] LABS: CALCIUM 8.8 mg/dL (8.5-10.1); CREATININE 1.7 mg/dL (0.6-1.3); MAGNESIUM 1.9 mg/dL (1.8-2.4); POTASSIUM 3.9 mmol/L (3.5-5.1)
[2019-08-17 12:00] VITALS: BP 139/97
[2019-08-17 16:00] VITALS: BP 125/68
[2019-08-17] MEDS ORDERED: LEVAQUIN 750 M750 MG PO (16:45)
[2019-08-17] MEDS ORDERED: PROAIR HFA8.5 GM INH (16:46)
[2019-08-17 18:17] VITALS: BP 125/68
--- NOTE | 2019-08-17 20:19 | NUR ---
PT VSS, NSR ON TELE, A&OX4. PT UP AD SONJA, AMBULATES IN ROOM. HOURLY ROUNDING PERFORMED, CALL LIGHT AND POSSESSIONS WITHIN REACH. REC DISCHARGE ORDERS, REVIEWED DISCHARGE PACKET WITH PT. ANSWERED QUESTIONS. PROVIDER ELECTRONICALLY SCRIPTED MEDS, GAVE PT CARE NOTES. REMOVED TELE MONITOR, REMOVED IV WITHOUT COMPLICATION PT LEFT UNIT WITH BROTHER AND LEFT BY CAR.
== END 2019-08-17 18:54 | disposition home or self-care (01) | DRG 291 ==
LOC: M.ERS 16:06 → M.2W 17:31 → M.TBA-ER 17:31 → M.2W 20:05
PROVIDERS: Internal Medicine; Physician Assistant; ADMIT Family Medicine
DX: I13.0 Hypertensive heart and chronic kidney disease with heart failure and stage 1 through stage 4 chronic kidney disease, or unspecified chronic kidney disease (principal); J18.9 Pneumonia, unspecified organism; I50.23 Acute on chronic systolic (congestive) heart failure; J44.0 Chronic obstructive pulmonary disease with (acute) lower respiratory infection; K74.60 Unspecified cirrhosis of liver; I42.8 Other cardiomyopathies; N18.3 Chronic kidney disease, stage 3 (moderate); K73.9 Chronic hepatitis, unspecified; Z86.711 Personal history of pulmonary embolism; Z88.0 Allergy status to penicillin; Z91.040 Latex allergy status; Z82.49 Family history of ischemic heart disease and other diseases of the circulatory system; Z71.6 Tobacco abuse counseling

== ENCOUNTER 2019-09-24 21:02 | Inpatient (IN) | payer OTHER ==
[~2019-09-24] VITALS: Ht 185.4 cm; Wt 71.2 kg
[~2019-09-24 21:02] MED LIST changes: +LEVAQUIN 750 M750 MG PO; +PROAIR HFA8.5 GM INH
[2019-09-24 21:05] VITALS: BP 182/136
[2019-09-24 21:43] LABS: ABSOLUTE BASOPHILS 0.1 thou/uL (0.0-0.2); ABSOLUTE MONOCYTES 0.8 thou/uL (0.0-1.2); ABSOLUTE NEUTROPHILS 8.1 thou/uL (1.6-8.1); BASOPHILS 0.7 %; EOSINOPHILS 0.3 %; HEMATOCRIT 38.7 % (42.0-52.0); HEMOGLOBIN 12.6 gm/dL (14.0-18.0); LYMPHOCYTES 17.8 %; MCH 27.9 pg (26.0-34.0); MCHC 32.6 g/dL (28.0-37.0); MCV 85.7 fL (80.0-100.0); MONOCYTES 7.5 %; MPV 8.5 fl. (7.2-11.1); NUCLEATED RBCS 0 /100WBC; PLATELET COUNT* 349 thou/uL (150-400); POLYS 73.7 %; RBC 4.52 mil/uL (4.50-6.00); RDW-CV 16.2 % (10.5-14.5)
[2019-09-24 21:53] LABS: APTT 28.8 Seconds (25.0-31.3); CALCIUM 7.3 mg/dL (8.5-10.1); CREATININE 1.7 mg/dL (0.6-1.3); INR 1.6; POTASSIUM 5.3 mmol/L (3.5-5.1); PROTIME 16.3 Seconds (9.20-11.50)
[2019-09-24 22:04] LABS: ALBUMIN 2.4 g/dL (3.4-5.0); TOTAL BILIRUBIN 1.6 mg/dL (<0.1-1.0); TOTAL PROTEIN 5.5 g/dL (6.4-8.2)
[2019-09-24 23:22] VITALS: BP 193/135
[2019-09-25 01:30] VITALS: BP 158/101
--- NOTE | 2019-09-25 01:35 | NUR ---
ADMIT TO ROOM 204 AT 2330. ALERT ORIENTED. UP AD SONJA. TELEMETRY SHOWS ST. 100-110. BP 192/138 DR NOTIFIED. ORDER FOR HYDROLAZINE OBTAINED AND GIVEN. BP DOWN TO 158/101. BREATH SOUNDS DIMINISHED ON RIGHT. O2 AT 2 LITERS NC. PT MAKE NPO AT [place] FOR CARDIOLOGY CONSULT. WCTM.
[2019-09-25 04:00] VITALS: BP 170/106
--- NOTE | 2019-09-25 07:20 | NUR ---
CHANGE OF SHIFT, BEDSIDE REPORT PATIENT SEEN AT BEDSIDE, IN BED RESTING ASSUMED PATIENT CARE
[2019-09-25 08:00] VITALS: BP 169/109
[2019-09-25 11:30] VITALS: BP 147/101
[2019-09-25 16:00] VITALS: BP 131/50
[2019-09-25 20:00] VITALS: BP 137/85
[2019-09-26] VITALS: BP 123/74
--- NOTE | 2019-09-26 00:11 | NUR ---
PT ALERT ORIENTED. UP AD SONJA IN ROOM. VOIDS CLEAR YELLOW. ON RA. BREATH SOUNDS DIMINISHED. TRAMADOL GIVEN FOR PAIN IN BACK. BENADRYL FOR SLEEP. TELEMETRY SHOWS SR. VILLARREAL
[2019-09-26 04:00] VITALS: BP 138/67
[2019-09-26 04:51] LABS: HEMATOCRIT 34.6 % (42.0-52.0); HEMOGLOBIN 11.4 gm/dL (14.0-18.0); MCH 27.8 pg (26.0-34.0); MCHC 32.9 g/dL (28.0-37.0); MCV 84.7 fL (80.0-100.0); RBC 4.09 mil/uL (4.50-6.00); RDW-CV 16.5 % (10.5-14.5); WBC 24.3 thou/uL (4.0-11.0)
[2019-09-26 04:57] LABS: INR 1.3; PROTIME 12.9 Seconds (9.20-11.50)
[2019-09-26 05:09] LABS: CALCIUM 7.4 mg/dL (8.5-10.1); CREATININE 1.7 mg/dL (0.6-1.3); MAGNESIUM 1.9 mg/dL (1.8-2.4); POTASSIUM 3.6 mmol/L (3.5-5.1); TOTAL BILIRUBIN 0.5 mg/dL (<0.1-1.0); TOTAL PROTEIN 5.2 g/dL (6.4-8.2)
[2019-09-26 07:00] VITALS: BP 136/75
--- NOTE | 2019-09-26 10:41 | NUR ---
Pt is A&O. Independent. Known to this CM from previous hospital stay. Pt states that he has not f/u with his Dr. No DME. No hx of HH or SNF. Following
--- NOTE | 2019-09-26 12:22 | NUR ---
INITAL ASSESSMENT COMPLETED CHARTED. VSS. TRACING SR ON MONITOR. PT DENIES PAIN, CP, SOA, N/V/D. PT IS ON ROOM AIR WITH ADEQUATE O2 SATS. NO NEW CONCERNS AT THIS TIME. HOURLY ROUNDING IN PLACE FOR PT SAFETY. CLWR.
[2019-09-26 16:00] VITALS: BP 146/87
--- NOTE | 2019-09-26 19:20 | NUR ---
PT TRANSFERRED TO FLOOR PER BED WITH BELONGINGS ACCOMPANIED BY 2W STAFF. PT ORIENTED TO ROOM AND CALL LITE. DENIES NEEDS AT THIS TIME. WILL CONTINUE TO MONITOR AND PROVIDE CARES NEEDED.
[2019-09-26 20:00] VITALS: BP 139/87
[2019-09-27 05:59] LABS: MCH 27.6 pg (26.0-34.0); MCHC 32.5 g/dL (28.0-37.0); MCV 84.9 fL (80.0-100.0); MPV 8.2 fl. (7.2-11.1); NUCLEATED RBCS 0 /100WBC; PLATELET COUNT* 339 thou/uL (150-400); RBC 4.36 mil/uL (4.50-6.00); RDW-CV 16.4 % (10.5-14.5); WBC 23.2 thou/uL (4.0-11.0)
[2019-09-27 06:08] LABS: INR 1.6; PROTIME 15.7 Seconds (9.20-11.50)
[2019-09-27 06:16] LABS: ALBUMIN 2.2 g/dL (3.4-5.0); CALCIUM 8.2 mg/dL (8.5-10.1); CREATININE 1.2 mg/dL (0.6-1.3); POTASSIUM 3.4 mmol/L (3.5-5.1); TOTAL BILIRUBIN 0.3 mg/dL (<0.1-1.0); TOTAL PROTEIN 5.4 g/dL (6.4-8.2)
[2019-09-27 06:24] LABS: PREALBUMIN 16.8 mg/dL (18.0-35.7)
[2019-09-27 06:31] LABS: ABSOLUTE LYMPHOCYTES 1.2 thou/uL (0.8-5.3); ABSOLUTE MONOCYTES 1.2 thou/uL (0.0-1.2); ABSOLUTE NEUTROPHILS 20.9 thou/uL (1.6-8.1); ANISOCYTOSIS 1+; OVALOCYTES Occasional; PLATELET ESTIMATE ADEQUATE; POIKILOCYTOSIS 1+; POLYCHROMASIA 1+
[2019-09-27 07:19] VITALS: BP 145/86
--- NOTE | 2019-09-27 07:25 | NUR ---
PT ACCUCHECK 486 AT , NOTIFIED AND ORDERS RECEIVED FOR MOD DOSE SS INSULIN, GIVEN ORDERED. RECHECK MIDNIGHT 312, AM LABS 162. PT USING URINAL TO VOID OVERNIGHT. NO COMPLAINTS OF PAIN OR PROBLEMS. RAC SL, ABX GIVEN ORDERED. ABLE TO USE CALL LITE AND MAKE NEEDS KNOWN. VSS, ROOM AIR.AM LABS DRAWN. PT HOPEFUL FOR DISCHARGE HOME SOON.
[2019-09-27 07:35] LABS: HEPATITIS B SURFACE AG Negative (Negative)
--- NOTE | 2019-09-27 09:25 | CON ---
[address] [address] CONSULTATION Name: MERADAVON CATA Room: [address] ADM IN M.R.#: [id number] Admission: 09/24/19 Attend Phys: Gisel Walker MD Discharge: Date of : 77 Report #: [id number] THIS REPORT FOR: //name// CC: LENARD physician/PCP Gisel Walker DATE OF SERVICE: 09/25/2019 CARDIOLOGY CONSULTATION HISTORY OF PRESENT ILLNESS: The patient is a 44-year-old single white male who I was asked to see in the hospital today after complained of being short of breath. The patient has an extensive past medical history. He has had several hospitalizations here at [facility]. He presented here in 2018 with shortness of breath. He is noted to have elevated blood pressure. Workup included an echocardiogram which showed an ejection fraction of only 20%. Nuclear stress test showed no ischemia. He was felt to have a nonischemic cardiomyopathy. In June of this year, he went to the Emergency Room in [place], [place]. He was transferred to [facility]. He was told he had a pulmonary embolus, was placed on warfarin. He was just admitted to the [facility] a month ago with shortness of breath. He was treated with antibiotics. He was discharged. He states he has been taking his medications. However, for the past 2 days, he has had increasing shortness of breath, edema and a cough. He came to the Emergency Room yesterday and was admitted. He denies any chest pain, palpitations or syncope. PAST MEDICAL HISTORY: He has had only ankle surgery. He has a history of hypertension and hyperlipidemia. MEDICATIONS: At this time include spironolactone, albuterol inhaler, carvedilol, lisinopril, and warfarin. ALLERGIES: HE HAS AN ALLERGY TO PENICILLIN. FAMILY HISTORY: His father had bypass surgery. SOCIAL HISTORY: He is , lives with a brother in [place], [place]. 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 He is not working at this time. Smokes half pack of cigarettes a day, used to drink 6-pack of beer a day. No longer drinks alcohol, used illicit drugs in the past including marijuana and amphetamines, although he no longer abuses drugs. REVIEW OF SYSTEMS: No history of stroke, liver disease. He has chronic kidney disease. No diabetes, no cancer. No psychiatric illness. [place] [address] CONSULTATION Name: DAVON TESFAYE Room: [address]#: [id number] Admission: 09/24/19 Attend Phys: Gisel Walker MD Discharge: Date of : 77 Report #: [id number] PHYSICAL EXAMINATION: GENERAL: Revealed an elderly male, appeared in no distress. VITAL SIGNS: He had a blood pressure of 160/100, pulse is 90, he is afebrile. HEENT: He was anicteric. Conjunctivae pink. Mucous membranes moist. NECK: Veins nondistended. No carotid bruits. CHEST: Clear to auscultation. CARDIOVASCULAR: Regular rate and rhythm. ABDOMEN: Soft. EXTREMITIES: Had no edema, no Homans' sign. Posterior tibial pulse 2+ bilaterally. SKIN: Warm, dry. NEUROLOGIC: Nonfocal. LYMPH: No adenopathy. MUSCULOSKELETAL: No joint effusion. RADIOLOGICAL DATA: His ECG on admission showed a sinus rhythm, nonspecific T-wave changes. His lab work, he had an echocardiogram done in July that again showed ejection fraction only 25%, left atrial enlargement. His chest x-ray done yesterday showed cardiomegaly, pulmonary vascular congestion, right lower lobe infiltrate, small effusions. He had a CT scan of the chest using a PE protocol last night that showed persistent small effusions, some atelectasis, no pulmonary embolus, no aortic dissection, persistent cardiomegaly, some gallstones. He had a CT scan of the chest last night that showed left lower lobe infiltrate consistent with pneumonitis. LABORATORY DATA: Sodium was 131, potassium 5.3, BUN 29, creatinine 1.7, glucose 162. SGOT 845, bilirubin 1.6, alkaline phosphate is 111. SGPT 86. BNP 19,562. His white blood cell count is 11.0, hemoglobin 12.6. IMPRESSION AND RECOMMENDATIONS: 1. Nonischemic cardiomyopathy. The patient is on an THEO inhibitor, beta davis and Aldactone. I would recommend Lasix. 2. Pneumonia. 3. Tobacco abuse. 4. History of illicit drug use. 5. Elevated liver function studies, suspect secondary to vascular congestion. 6. Chronic kidney disease. <ELECTRONICALLY SIGNED> By: Gabino Huddleston MD, FACC 09/27/19 0925 [id number] [id number] Huddleston MD, FAC /nt
--- NOTE | 2019-09-27 10:41 | EKG ---
[place] [address] ELECTROCARDIOGRAM REPORT Name: DAVON TESFAYE Room: [address] ADM IN M.R.#: [id number] Admission: 09/24/19 Attend Phys: Gisel Walker MD Discharge: Date of : 77 Report #: [id number] THIS REPORT FOR: //name// [facility] ED Test Date: 2019-09-24 Test Time: 21:23:46 Pat Name: DAVON TESFAYE Department: Room: [facility] Gender: M [employer]: PATI : 1975 Requested By: Enrike Johnson Order Number: [id number] MD: Ky Maldonado Measurements Intervals [place] Rate: 102 P: 70 IN: 143 QRS: 20 QRSD: 111 T: 116 QT: 391 QTc: 510 Interpretive Statements Sinus tachycardia Left atrial enlargement LVH with secondary repolarization abnormality Prolonged QT interval Baseline wander in lead(s) V1,V2 Compared to ECG 08/15/2019 16:46:50 Sinus rhythm no longer present ST (T wave) deviation no longer present Electronically Signed On 09-27-2019 10:41:40 [employer] by Ky Maldonado [email or web address] <ELECTRONICALLY SIGNED> By: Ky Maldonado MD, FACC 09/27/19 1041 22 22 Ky Maldonado MD, FACC /EPI
[2019-09-27 15:58] VITALS: BP 157/94
--- NOTE | 2019-09-27 16:21 | NUR ---
ASSESSSMENT COMPLETE. PT IS ALERT AND ORIENTED X4. DENIES PAIN. DENIES N/V. TOLERATING MEALS. PT POSSIBLE DC TOMORROW, CASE MANAGEMENT TO SET UP FOLLOW UP APPOINTMENT WITH LIVER SPECIALIST AND [facility]. PT IS UP AD SONJA. ACCU CHECK ACHS. IV IN RIGHT AC, SL. SEE ASSESSMENT AND VITALS FOR OTHER DETAILS. CALL LIGHT WITHIN REACH, WILL CONTINUE PLAN OF CARE
--- NOTE | 2019-09-27 16:43 | NUR ---
SW met with pt and discussed recommendation for pt to follow up with pattern painter and liver specialist/GI. SW discussed the importance of following through with the appts if SW secures the appointments and SW pointed out to pt that he had not followed up/attended any previous appts scheduled by CM in the past. Pt said he knew but that he would try to go this time. Pt preference for [facility], POLLY called but was unable to connect to scheduling at this time; SW to call again in the morning to schedule appts. POLLY discussed prescriptions with RN and most possible meds for pt at dc are on the $4 list. SW to continue to follow to assist with safe dc planning.
[2019-09-27 20:00] VITALS: BP 143/95
[2019-09-28 02:08] LABS: GLYCOHEMOGLOBIN (HGB A1C) 6.1 % (4.8-5.6)
[2019-09-28 04:45] LABS: HEMATOCRIT 40.3 % (42.0-52.0); HEMOGLOBIN 13.2 gm/dL (14.0-18.0); MCH 27.9 pg (26.0-34.0); MCHC 32.7 g/dL (28.0-37.0); MCV 85.4 fL (80.0-100.0); MPV 8.3 fl. (7.2-11.1); RBC 4.72 mil/uL (4.50-6.00); RDW-CV 16.8 % (10.5-14.5); WBC 11.5 thou/uL (4.0-11.0)
--- NOTE | 2019-09-28 05:01 | NUR ---
PT AOX4, UP AD SONJA IN ROOM. HAS DENIED PAIN OR PROBLEMS OVERNIGHT, SLEPT WELL. HS ACCUCHECK 119, REFUSING INSULIN, REQUESTING SEVERAL SNACKS. RAC SL, ABX GIVEN ORDERED. AM LABS DRAWN. POSSIBLE DISCHARGE HOME TODAY PENDING FAVORABLE LAB RESULTS. ROOM AIR. ABLE TO USE CALL LITE AND MAKE NEEDS KNOWN.CALL LITE IN EASY REACH.
[2019-09-28 05:08] LABS: INR 1.6; PROTIME 15.9 Seconds (9.20-11.50)
[2019-09-28 05:15] LABS: ALBUMIN 2.1 g/dL (3.4-5.0); CALCIUM 7.9 mg/dL (8.5-10.1); CREATININE 1.4 mg/dL (0.6-1.3); MAGNESIUM 1.9 mg/dL (1.8-2.4); POTASSIUM 3.4 mmol/L (3.5-5.1); TOTAL BILIRUBIN 0.3 mg/dL (<0.1-1.0); TOTAL PROTEIN 5.2 g/dL (6.4-8.2)
[2019-09-28 09:05] VITALS: BP 141/92
[2019-09-28 09:08] VITALS: BP 141/92
[2019-09-28] MEDS ORDERED: SPIRONOLACTONE25 MG PO (10:27)
[2019-09-28] MEDS ORDERED: LEVAQUIN 500 M500 M3 PO (10:27)
[2019-09-28] MEDS ORDERED: LISINOPRIL20 MG PO (10:27)
[2019-09-28] MEDS ORDERED: LASIX 40 MG TAB40 M1 PO (10:27)
[2019-09-28] MEDS ORDERED: COUMADIN 5 MG TA5 M1 PO (10:27)
[2019-09-28] MEDS ORDERED: COREG25 MG PO (10:27)
--- NOTE | 2019-09-28 12:56 | NUR ---
POLLY met with pt to discuss SW able to schedule a follow up appt with [facility] clinic in [place] and entered follow up appt info in dc instructions. Pt to nc home today and Dr Walker informed POLLY pt needing assist with med cost, POLLY spoke with pt about the program and sent approval form and med scripts to [place] [address] pharmacy. POLLY provided good rx info and other rx assistance program info/resources as the rx assist is a one time assist program.
--- NOTE | 2019-09-28 14:40 | NUR ---
PATIENT DISCHARGED TO HOME. DISCHARGE PAPERS REVIEWED AND SIGNED. PRESCRIPTIONS GIVEN WITH ASSISTANCE PROVIDED THROUGH Angella Joy ON [address]. MEDICATION INFORMATION SHEETS GIVEN. HOME MEDICATIONS RETURNED TO PATIENT. IV REMOVED. PATIENT DENIES ANY FURTHER NEEDS. PATIENT TAKEN BY WHEELCHAIR TO EXIT. LEFT BY OWN VEHICLE.
== END 2019-09-28 14:40 | disposition home or self-care (01) | DRG 177 ==
LOC: M.ERS 21:02 → M.TBA-ER 22:18 → M.2W 22:18 → M.3W 09-26 19:27
PROVIDERS: Family Medicine; Internal Medicine; ADMIT Internal Medicine
DX: J15.6 Pneumonia due to other Gram-negative bacteria (principal); J96.00 Acute respiratory failure, unspecified whether with hypoxia or hypercapnia; I50.43 Acute on chronic combined systolic (congestive) and diastolic (congestive) heart failure; I13.0 Hypertensive heart and chronic kidney disease with heart failure and stage 1 through stage 4 chronic kidney disease, or unspecified chronic kidney disease; B19.10 Unspecified viral hepatitis B without hepatic coma; D68.59 Other primary thrombophilia; J44.1 Chronic obstructive pulmonary disease with (acute) exacerbation; J44.0 Chronic obstructive pulmonary disease with (acute) lower respiratory infection; I42.9 Cardiomyopathy, unspecified; K74.60 Unspecified cirrhosis of liver; N18.3 Chronic kidney disease, stage 3 (moderate); E78.5 Hyperlipidemia, unspecified; F17.210 Nicotine dependence, cigarettes, uncomplicated; Z71.6 Tobacco abuse counseling; Z91.14 Patient's other noncompliance with medication regimen; Z86.711 Personal history of pulmonary embolism; Z88.0 Allergy status to penicillin; Z91.040 Latex allergy status; Z82.49 Family history of ischemic heart disease and other diseases of the circulatory system; Z79.899 Other long term (current) drug therapy